=== PATIENT | female | born 1970 | race Caucasian/White ===

== ENCOUNTER → 2016-06-04 | Outpatient (CLI) | payer OTHER ==
[2015-12-30 10:02] VITALS: BP 122/72
[~2016-06-04] MED LIST: ACET325T9 PO; HYDR25CA PO; IBUP-1007 PO; IBUP-1060 PO; OMEP20CA5 PO
[2016-06-04 15:41] LABS: BILIRUBIN,URINE NEGATIVE (NEG); GLUCOSE,URINE NEGATIVE (NEG); NITRITE,URINE POSITIVE (NEG); PH,URINE 6.5; PROTEIN,URINE NEGATIVE (NEG-TRACE); UROBILINOGEN,URINE 0.2 mg/dL (0.2 mg/dL)
== END | disposition home or self-care (01) ==
LOC: LAB 15:14
PROVIDERS: ATTEND Family Medicine
DX: R30.9 Painful micturition, unspecified (principal)
CPT/HCPCS: 81003; 87086

== ENCOUNTER 2016-07-24 06:10 | Emergency (ER) | payer OTHER ==
[~2016-07-24] VITALS: Ht 162.6 cm; Wt 87.5 kg
[2016-07-24 06:46] LABS: BILIRUBIN,URINE NEGATIVE (NEG); GLUCOSE,URINE NEGATIVE (NEG); NITRITE,URINE NEGATIVE (NEG); PH,URINE 5.5; PROTEIN,URINE NEGATIVE (NEG-TRACE); UROBILINOGEN,URINE 0.2 mg/dL (0.2 mg/dL)
[2016-07-24 06:59] LABS: BACTERIA,URINE 0 /HPF (0-FEW); RBC,URINE 0 /HPF (0-2); SQUAMOUS EPITHELIAL CELL,UR FEW /LPF; WBC,URINE 0 /HPF (0-4)
[2016-07-24] MEDS ORDERED: DIAZEPAM 5 MG TABLET PO ONE (07:00)
[2016-07-24] MEDS ORDERED: NAPROXEN 500 MG TABLET PO ONE (07:00)
--- NOTE | 2016-07-24 07:23 | EKG ---
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
--- NOTE | 2016-07-24 07:36 | RAD ---
Right scapula, 2 views, 07/24/2016: History: Pain No fracture or destructive bony lesion is seen. IMPRESSION: No significant right scapular abnormality is detected. Chest, 2 views, 07/24/2016: History: Right-sided pain Comparison is made to a study from 09/21/2011. The heart size and pulmonary vascularity are normal. The right hemidiaphragm is minimally elevated. There is moderate linear atelectasis in the right base. There is minimal linear scarring or atelectasis in the left base. No pulmonary consolidation is seen. There is no evidence of pleural fluid or pneumothorax. The bony structures are unremarkable. IMPRESSION: Moderate right basilar linear atelectasis.
--- NOTE | 2016-07-24 07:40 | ED.ADGEN ---
Past Medical History Past Medical History: Migraines, UTI, Other Additional Past Medical Histor: DISTONIA, back pain Past Surgical History: Appendectomy, Cholecystectomy, , Other Additional Past Surgical Histo: L breast bipsy, ELBOW SX, uterine ablation Alcohol Use: Occasionally Drug Use: None Adult General Chief Complaint Chief Complaint: BACK PAIN OR INJURY HPI HPI Patient is a 46 year old woman, history of dystonia, migraine headache, who presents to the emergency department with a complaint of left scapular pain, and back pain that began last Friday has been constant since that time she states the pain is sharp and stabbing, denies any specific injury, has been taking Aleve and using topical medications at home without relief. Review of Systems Review of Systems Constitutional: Denies fever or chills. [] Eyes: Denies change in visual acuity. [] HENT: Denies nasal congestion or sore throat. [] Respiratory: Denies cough or shortness of breath. [] Cardiovascular: Denies chest pain or edema. [] GI: Denies abdominal pain, nausea, vomiting, bloody stools or diarrhea. [] : Denies dysuria. [] Musculoskeletal: Denies back pain or joint pain. [] Integument: Denies rash. [] Neurologic: Denies headache, focal weakness or sensory changes. [] Endocrine: Denies polyuria or polydipsia. [] Lymphatic: Denies swollen glands. [] Psychiatric: Denies depression or anxiety. [] Current Medications Current Medications Current Medications Medications (Trade) Dose Ordered Sig/Mirza Start Time Stop Time Status Last Admin Dose Admin Diazepam (Valium) 5 mg 1X ONCE 07/24/16 07:00 07/24/16 07:01 DC 07/24/16 06:56 5 MG Naproxen (Naprosyn) 500 mg 1X ONCE 07/24/16 07:00 07/24/16 07:01 DC 07/24/16 06:56 500 MG Allergies Allergies Allergies Coded Allergies Type Severity Reaction Last Updated Verified povidone-iodine Allergy Severe RASH, HIVES, BURNING 10/11/13 Yes codeine Adverse Reaction Severe DYSTONIA 10/11/13 Yes Physical Exam Physical Exam Constitutional: Well developed, well nourished, no acute distress, non-toxic appearance. [] HENT: Normocephalic, atraumatic, bilateral external ears normal, oropharynx moist, no oral exudates, nose normal. [] Eyes: PERRLA, EOMI, conjunctiva normal, no discharge. [] Neck: Normal range of motion, no tenderness, supple, no stridor. [] Cardiovascular:Heart rate regular rhythm, no murmur, S1, S2, rubs or gallops. [] Lungs & Thorax: Bilateral breath sounds clear to auscultation, no wheezing, rhonchi, rales. Patient with reproducible tenderness to palpation along the medial aspect of the right scapula, extending over the trapezius and into the neck, patient with tissue tension and muscle spasm noted in this region, no lesions, no sternal signs of trauma or other abnormalities identified. Abdomen: Bowel sounds normal, soft, no tenderness, no masses, no pulsatile masses. [] Skin: Warm, dry, no erythema, no rash. [] Back: No tenderness, no CVA tenderness. [] Extremities: No tenderness, no cyanosis, no clubbing, ROM intact, no edema. [] Neurologic: Alert and oriented X 3, normal motor function, normal sensory function, no focal deficits noted. [] Psychologic: Affect normal, judgement normal, mood normal. [] Current Patient Data Vital Signs Vital Signs Date Time Temp Pulse Resp B/P Pulse Ox O2 Delivery O2 Flow Rate FiO2 07/24/16 08:26 86 16 96/58 94 Room Air 07/24/16 06:48 97.9 97.9 Lab Values Laboratory Tests Test 07/24/16 06:25 07/24/16 06:38 Urine Collection Type Unknown Urine Color Yellow Urine Clarity Clear Urine pH 5.5 Urine Specific [place] 1.010 Urine Protein Negativemg/dL (NEG-TRACE) Urine Glucose (UA) Negativemg/dL (NEG) Urine Ketones (Stick) Negativemg/dL (NEG) Urine Blood Negative (NEG) Urine Nitrite Negative (NEG) Urine Bilirubin Negative (NEG) Urine Urobilinogen Dipstick 0.2mg/dL (0.2 mg/dL) Urine Leukocyte Esterase Negative (NEG) Urine RBC 0/HPF (0-2) Urine WBC 0/HPF (0-4) Urine Squamous Epithelial Cells Few/LPF Urine Bacteria 0/HPF (0-FEW) Urine Mucus Marked/LPF POC Urine HCG, Qualitative Hcg negative (Negative) EKG EKG EC: Sinus rhythm, heart rate 97 beats minute, upright axis, QTC of 423, SC 126, QRS of 82, no ST elevations or depressions, no evidence of acute ST abnormalities. As interpreted by me. [] Radiology/Procedures Radiology/Procedures [] [id number] [place] [address] IMAGING REPORT Signed PATIENT: ZANDER AGUILAR ACCOUNT: [id number] : 1970 LOCATION: ER AGE: 46 SEX: F EXAM [id number] STATUS: REG ER ORD. PHYSICIAN: DANYEL MCKEON DO REASON: pain/ R side PROCEDURE: CHEST PA & LATERAL; SCAPULA RIGHT Right scapula, 2 views, 07/24/2016: History: Pain No fracture or destructive bony lesion is seen. IMPRESSION: No significant right scapular abnormality is detected. Chest, 2 views, 07/24/2016: History: Right-sided pain Comparison is made to a study from 09/21/2011. The heart size and pulmonary vascularity are normal. The right hemidiaphragm is minimally elevated. There is moderate linear atelectasis in the right base. There is minimal linear scarring or atelectasis in the left base. No pulmonary consolidation is seen. There is no evidence of pleural fluid or pneumothorax. The bony structures are unremarkable. IMPRESSION: Moderate right basilar linear atelectasis. DICTATED and SIGNED BY: SANIYA ROSAS MD DATE: 07/24/16 0731 CC: DANYEL MCKEON DO; MYRIAM GONZALEZ MD ~ Impressions: [id number] [place] [address] IMAGING REPORT Signed PATIENT: ZANDER AGUILAR ACCOUNT: [id number] : 1970 LOCATION: ER AGE: 46 SEX: F EXAM [id number] STATUS: REG ER ORD. PHYSICIAN: DANYEL MCKEON DO REASON: pain/ R side PROCEDURE: CHEST PA & LATERAL; SCAPULA RIGHT Right scapula, 2 views, 07/24/2016: History: Pain No fracture or destructive bony lesion is seen. IMPRESSION: No significant right scapular abnormality is detected. Chest, 2 views, 07/24/2016: History: Right-sided pain Comparison is made to a study from 09/21/2011. The heart size and pulmonary vascularity are normal. The right hemidiaphragm is minimally elevated. There is moderate linear atelectasis in the right base. There is minimal linear scarring or atelectasis in the left base. No pulmonary consolidation is seen. There is no evidence of pleural fluid or pneumothorax. The bony structures are unremarkable. IMPRESSION: Moderate right basilar linear atelectasis. DICTATED and SIGNED BY: SANIYA ROSAS MD DATE: 07/24/16 0731 CC: DANYEL MCKEON DO; MYRIAM GONZALEZ MD ~ Course & Med Decision Making Course & Med Decision Making Pertinent Labs and Imaging studies reviewed. (See chart for details) Patient well-appearing reproducible pain, tissue tension noted, consistent with there is a spasm, I do believe is consistent with musculoskeletal source, not pulmonary or cardiac, ECG and chest x-ray were normal along with scapular x-ray for bony abnormalities. Pain has been present continuously for the past 4 days, with no reported injuries. Patient noted to have mild atelectasis in the right side. I did discuss this with her, she has used incentives barometer previously , is agreeable to using his incentive spirometry again at this time. Patient received naproxen and Valium in the ED with improvement of her symptoms. Did discuss concerning symptoms to prompt return to the emergency department, and follow-up with her primary care provider. Patient states she is ready for discharge at this time, discharged with prescription for Valium, naproxen, given incentive spirometer with instructions, to follow-up with her PCP, and return to the ED for concerning symptoms as discussed. Dragon Disclaimer Dragon Disclaimer This electronic medical record was generated, in whole or in part, using a voice recognition dictation system. Departure Impression: Primary Impression: Back pain Additional Impression: Myofascial pain on right side Disposition: 01 HOME, SELF-CARE Condition: IMPROVED Scripts Diazepam (Valium)5 Mg Tablet5 Mg PO TID PRN PAIN #12 TAB Prov:DANYEL MCKEON DO 07/24/16 Naproxen 250 Mg [id number] Mg PO BID PRN PAIN #10 Prov:DANYEL MCKEON DO 07/24/16 Problem Qualifiers Primary Impression: Back pain Back pain location: thoracic back pain Chronicity: acute Back pain laterality: right Qualified Code: M54.6 - Pain in thoracic spine DANYEL MCKEON DO Jul 24, 2016 07:40
[2016-07-24] MEDS ORDERED: NAPR250T2 PO (08:21)
[2016-07-24] MEDS ORDERED: DIAZ5TAB PO (08:21)
[2016-07-24 08:26] VITALS: BP 96/58
== END 2016-07-24 08:34 | disposition home or self-care (01) ==
LOC: ER 06:10
DX: M54.9 Dorsalgia, unspecified (principal); M79.1 Myalgia; J98.11 Atelectasis; G43.909 Migraine, unspecified, not intractable, without status migrainosus; Z87.440 Personal history of urinary (tract) infections; Z90.49 Acquired absence of other specified parts of digestive tract; Z98.890 Other specified postprocedural states; Z88.5 Allergy status to narcotic agent; Z91.041 Radiographic dye allergy status
CPT/HCPCS: 71020; 73010; 81001; 81025; 93005; 99285-25

== ENCOUNTER → 2016-07-29 | Outpatient (CLI) | payer OTHER ==
[2016-07-24 08:26] VITALS: BP 96/58
[~2016-07-29] MED LIST changes: +DIAZ5TAB PO; +NAPR250T2 PO
--- NOTE | 2016-07-29 16:30 | KCIC ---
PROCEDURE Five view cervical and three-view thoracic spine HISTORY Upper back pain for 1.5 weeks. No known injury or trauma. COMPARISON None FINDINGS Cervical C1 through C6 are visualized on the lateral view. No evidence of acute fracture or bone destruction. Disc spaces and alignment are intact. Prevertebral soft tissues within normal limits. The neural foramina demonstrate no osseous encroachment. Thoracic spine No evidence of acute fracture or aggressive bone destruction. No paraspinal soft tissue swelling. Incidentally noted linear density in the right lung base may represent atelectasis. IMPRESSION No evidence of acute fracture or subluxation in the cervical or thoracic spine. Partially seen linear opacity in the right lung base, may represent atelectasis. Electronically signed by: Steven Hooker MD (Jul 29, 2016 16:28:32)
== END | disposition home or self-care (01) ==
LOC: KCIC 15:51
PROVIDERS: ATTEND Family Medicine
DX: M54.2 Cervicalgia (principal); R91.8 Other nonspecific abnormal finding of lung field
CPT/HCPCS: 72050; 72072

== ENCOUNTER → 2016-09-23 | Outpatient (CLI) | payer OTHER | END | disposition home or self-care (01) | LOC: LAB 14:09 | PROVIDERS: ATTEND Psychiatry & Neurology Neuromuscular Medicine | DX: G71.11 Myotonic muscular dystrophy (principal) | CPT/HCPCS: 36415 ==

== ENCOUNTER → 2016-09-23 | Outpatient (CLI) | payer OTHER ==
[2016-09-23 14:34] LABS: BASO % 1 % (0-3); EOS % 2 % (0-3); HEMATOCRIT 51.5 % (36.0-47.0); LYMPH # 1.6 x10^3/uL (1.0-4.8); LYMPH % 28 % (24-48); MEAN CORPUSCULAR HEMOGLOBIN 33 pg (25-35); MEAN CORPUSCULAR HGB CONC 33 g/dL (31-37); MEAN CORPUSCULAR VOLUME 99 fL (79-100); MONO % 10 % (0-9); NEUT % 60 % (31-73); PLATELET COUNT 199 x10^3/uL (140-400); RED BLOOD COUNT 5.19 x10^6/uL (3.50-5.40); WHITE BLOOD COUNT 5.6 x10^3/uL (4.0-11.0)
[2016-09-23 14:59] LABS: ALBUMIN 3.4 g/dL (3.4-5.0); ALBUMIN/GLOBULIN RATIO 0.9 (1.0-1.7); CALCIUM 9.3 mg/dL (8.5-10.1); CREATININE 0.9 mg/dL (0.6-1.0); GFR 67.4; POTASSIUM 3.7 mmol/L (3.5-5.1); TOTAL BILIRUBIN 0.5 mg/dL (0.2-1.0); TOTAL PROTEIN 7.3 g/dL (6.4-8.2)
[2016-09-23 15:05] LABS: CHOLESTEROL/HDL RATIO 2.9
[2016-09-23 15:54] LABS: FOLATE 8.82 ng/ml (3.2-20.0)
== END | disposition home or self-care (01) ==
LOC: LAB 14:01
PROVIDERS: ATTEND Family Medicine
DX: Z13.220 Encounter for screening for lipoid disorders (principal); M62.89 Other specified disorders of muscle
CPT/HCPCS: 36415; 80053; 80061; 82607; 82746; 84443; 85027

== ENCOUNTER → 2016-10-14 | Outpatient (CLI) | payer OTHER ==
--- NOTE | 2016-10-15 12:33 | SLEEP ---
DATE OF STUDY: 10/14/2016 ATTENDING PHYSICIAN: Dr. Steven Mejia. The patient is a 46-year-old, who weighs 187 pounds with a BMI of 32. P[place] score was 10. Sleep study was performed at [facility]. This was a split night study. During the night study, the patient spent 454 minutes in bed and slept for 281 minutes with a low sleep efficiency of 62%. Sleep latency was 25 minutes with a REM latency of 156 minutes. Overall, sleep architecture showed increased stage I sleep, reduced stage II sleep, increased slow wave and normal REM sleep. During the initial diagnostic portion of the study, the patient slept for 149 minutes. During this time, there were 22 obstructive apneas, 23 hypopneas, 8 mixed apneas and no central apneas. The patient's apnea-hypopnea index was 21 per hour. Supine index 21 per hour and a REM index of 108 per hour. EKG monitoring revealed normal sinus rhythm, average heart rate was 70 beats per minute. No arrhythmias were observed. Review of nocturnal oximetry reveals that 51% of the time oxygen saturation remained between 80% and 89%. PLMS were not seen. The patient met the criteria for CPAP initiation. It was started at 5 cm of water and titrated up to 9 cm of water. At the final pressure, the patient slept for 53 minutes. The patient had supine as well as long REM period was observed. AHI was 0 per hour and oxygen saturation remained above 92%. The patient used a medium size full face mask. IMPRESSION: 1. Moderate sleep apnea-hypopnea syndrome with worsening during REM sleep. Total AHI 21 per hour with a REM AHI 108 per hour. 2. No clinically significant PLMS. 3. Nocturnal hypoxia secondary to obstructive sleep apnea, but resolved with CPAP RECOMMENDATIONS: 1. CPAP at 9 cm water completely eliminated the patient's sleep apnea and should be used on a nightly basis. 2. Follow up in 4-6 weeks to assess compliance with CPAP and to document clinical improvement. 3. Weight loss is advised. 4. Avoid [employer] depressants. 5. Caution regarding driving until symptoms of sleep apnea resolved with the use of CPAP. CALVIN MONTANEZ MD DR: DEXTER/feliz JOB#: [id number] / [id number] STEVEN Starks MDD
== END | disposition home or self-care (01) ==
LOC: SLPLAB 18:35
PROVIDERS: ATTEND Family Medicine
DX: G47.33 Obstructive sleep apnea (adult) (pediatric) (principal); R53.83 Other fatigue; Q79.6 Ehlers-Danlos syndromes; R06.83 Snoring
CPT/HCPCS: 95810

== ENCOUNTER 2016-12-26 05:31 | Emergency (ER) | payer OTHER ==
[~2016-12-26] VITALS: Ht 162.6 cm; Wt 83.9 kg
[2016-12-26 05:35] VITALS: BP 120/80
[2016-12-26] MEDS ORDERED: HYDROcodone/APAP 5/325MG 1 TAB TABLET PO ONE (06:45)
[2016-12-26] MEDS ORDERED: ORPHENADRINE CITRATE 60 MG/2 ML VIAL. IM ONE (06:45)
[2016-12-26] MEDS ORDERED: NAPROXEN 500 MG TABLET PO ONE (06:45)
[2016-12-26] MEDS ORDERED: HYDR-971 PO (06:49)
[2016-12-26] MEDS ORDERED: CYCL10TA2 PO (06:49)
[2016-12-26] MEDS ORDERED: NAPR500T PO (06:49)
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
== END 2016-12-26 07:03 | disposition home or self-care (01) ==
LOC: ER 05:31
DX: M54.9 Dorsalgia, unspecified (principal); G43.909 Migraine, unspecified, not intractable, without status migrainosus; Z88.8 Allergy status to other drugs, medicaments and biological substances; Z88.6 Allergy status to analgesic agent; Z87.440 Personal history of urinary (tract) infections; Z90.49 Acquired absence of other specified parts of digestive tract; W17.89XA Other fall from one level to another, initial encounter; Y93.89 Activity, other specified; Y92.89 Other specified places as the place of occurrence of the external cause; Y99.8 Other external cause status
CPT/HCPCS: 96372; 99283; J2360

== ENCOUNTER 2017-01-06 12:02 | Inpatient (IN) | payer OTHER ==
[~2017-01-06] VITALS: Ht 162.6 cm; Wt 83.0 kg
[~2017-01-06 12:02] MED LIST changes: +CYCL10TA2 PO; +HYDR-971 PO; +NAPR500T PO
--- NOTE | 2017-01-06 12:38 | EKG ---
[facility] [address] [place] [address] Test Date: 2017-01-06 Test Time: 12:10:16 Pat Name: ZANDER AGUILAR Department: Room: Gender: F Paraffiner: : 1970 Requested By: DRE CHÁVEZ Order Number: [id number] Reading MD: Measurements Intervals [place] Rate: 104 P: 38 DE: 136 QRS: 42 QRSD: 84 T: 0 QT: 374 QTc: 499 Interpretive Statements SINUS TACHYCARDIA LOW LIMB LEAD VOLTAGE QRS(T) CONTOUR ABNORMALITY CONSIDER INFERIOR MYOCARDIAL DAMAGE RI6.01 Unconfirmed report No previous ECG available for comparison
[2017-01-06] MEDS ORDERED: ASPIRIN CHEWABLE 81 MG TABLET. PO ONE (13:00)
[2017-01-06] MEDS ORDERED: KETOROLAC TROMETHAMINE 30 MG/ML INJ. IV ONE (13:00)
[2017-01-06 13:09] LABS: BASO # 0.1 x10^3/uL (0.0-0.2); BASO % 1 % (0-3); EOS % 1 % (0-3); HEMATOCRIT 48.8 % (36.0-47.0); HEMOGLOBIN 16.9 g/dL (12.0-15.5); LYMPH # 1.6 x10^3/uL (1.0-4.8); LYMPH % 23 % (24-48); MEAN CORPUSCULAR HEMOGLOBIN 34 pg (25-35); MEAN CORPUSCULAR HGB CONC 35 g/dL (31-37); MEAN CORPUSCULAR VOLUME 97 fL (79-100); MONO % 10 % (0-9); NEUT % 66 % (31-73); PLATELET COUNT 209 x10^3/uL (140-400); RED BLOOD COUNT 5.05 x10^6/uL (3.50-5.40); RED CELL DISTRIBUTION WIDTH 13.8 % (11.5-14.5); WHITE BLOOD COUNT 7.2 x10^3/uL (4.0-11.0)
[2017-01-06 13:15] LABS: CALCIUM 10.5 mg/dL (8.5-10.1); CREATININE 0.8 mg/dL (0.6-1.0); GFR 77.2; POTASSIUM 4.7 mmol/L (3.5-5.1)
[2017-01-06 13:22] LABS: ALBUMIN 3.7 g/dL (3.4-5.0); DIRECT BILIRUBIN 0.1 mg/dL (0.0-0.2); MAGNESIUM 1.8 mg/dL (1.8-2.4); TOTAL BILIRUBIN 0.4 mg/dL (0.2-1.0); TOTAL PROTEIN 6.8 g/dL (6.4-8.2)
--- NOTE | 2017-01-06 13:27 | PHYS DOC ---
Past Medical History Past Medical History: Depression, Migraines, UTI, Other Additional Past Medical Histor: DISTONIA, back pain, miotonic distrophy type 1 Past Surgical History: Appendectomy, Cholecystectomy, , Other Additional Past Surgical Histo: L breast bipsy, ELBOW SX, uterine ablation Additional Information: 5-6 cigarettes daily Alcohol Use: Occasionally Drug Use: None Adult General Chief Complaint Chief Complaint: CHEST PAIN HPI HPI Patient is a 46 year old female on her and who is a patient of Dr. Godinez who presents to the ED with the complaint of right shoulder pain and mid chest pain all day today. Patient states about 3 weeks ago she pulled her back and has been dealing with some back pain since then. This morning, she woke up with pain in her right shoulder going down into the middle of her chest. The shoulder pain doesn't really go away, it waxes and wanes, middle chest pain does come and go. She's never had pain like this before. She has no history of [place]. 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 She has an EKG every 6 months to keep an eye on the cardiac impact of that. Patient denies nausea, she has had somewhat shortness of air, she has been a bit dizzy. 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 Patient denies history of [place]. She does smoke 5 or 6 cigarettes a day. She denies hypertension, denies elevated cholesterol, denies diabetes. She has a positive family history with her father having an [place] and her grandfather as well. Review of Systems Review of Systems Constitutional: Denies fever or chills [] Eyes: Denies change in visual acuity, redness, or eye pain [] HENT: Denies nasal congestion or sore throat [] Respiratory: Denies cough, has had some shortness of air with the chest pain and also it hurts to take a deep breath Cardiovascular: As in history of present illness GI: Denies abdominal pain, nausea, vomiting, bloody stools or diarrhea [] : Denies dysuria or hematuria [] Musculoskeletal: As in history of present illness, she has had some back pain for about 3 weeks and took her last dose of Lortab yesterday. Also has a history of "myotonic dystrophy type I". Integument: Denies rash or skin lesions [] Neurologic: Denies headache, focal weakness or sensory changes [] Current Medications Current Medications Current Medications Medications (Trade) Dose Ordered Sig/Mirza Start Time Stop Time Status Last Admin Dose Admin Aspirin (Children'S Aspirin) 324 mg 1X ONCE 01/06/17 13:00 01/06/17 13:01 DC 01/06/17 13:03 324 MG Ketorolac Tromethamine (Toradol) 30 mg 1X ONCE 01/06/17 13:00 01/06/17 13:01 DC 01/06/17 13:04 30 MG Allergies Allergies Allergies Coded Allergies Type Severity Reaction Last Updated Verified povidone-iodine Allergy Severe RASH, HIVES, BURNING 10/11/13 Yes Physical Exam Physical Exam Constitutional: Well developed, well nourished, no acute distress, non-toxic appearance. [] HENT: Normocephalic, atraumatic, bilateral external ears normal, oropharynx moist, no oral exudates, nose normal. [] Eyes: PERRLA, EOMI, conjunctiva normal, no discharge. [] Neck: Normal range of motion, no tenderness, supple, no stridor. [] Cardiovascular:Heart rate regular rhythm, no murmur [] Lungs & Thorax: Bilateral breath sounds clear to auscultation [] Abdomen: Bowel sounds normal, soft, no tenderness, no masses, no pulsatile masses. [] Skin: Warm, dry, no erythema, no rash. [] Back: No tenderness, no CVA tenderness. [] Extremities: No tenderness, no cyanosis, no clubbing, ROM intact, no edema. [] Neurologic: Alert and oriented X 3, normal motor function, normal sensory function, no focal deficits noted. [] Psychologic: Affect normal, judgement normal, mood normal. [] Current Patient Data Vital Signs Vital Signs Date Time Temp Pulse Resp B/P (MAP) Pulse Ox O2 Delivery O2 Flow Rate FiO2 01/06/17 12:08 98.7 99 18 121/78 (92) 95 Room Air 98.7 Lab Values Laboratory Tests Test 01/06/17 12:53 White Blood Count 7.2 x10^3/uL (4.0-11.0) Red Blood Count 5.05 x10^6/uL (3.50-5.40) Hemoglobin 16.9 g/dL (12.0-15.5) H Hematocrit 48.8 % (36.0-47.0) H Mean Corpuscular Volume 97 fL (79-100) Mean Corpuscular Hemoglobin 34 pg (25-35) Mean Corpuscular Hemoglobin Concent 35 g/dL (31-37) Red Cell Distribution Width 13.8 % (11.5-14.5) Platelet Count 209 x10^3/uL (140-400) Neutrophils (%) (Auto) 66 % (31-73) Lymphocytes (%) (Auto) 23 % (24-48) L Monocytes (%) (Auto) 10 % (0-9) H Eosinophils (%) (Auto) 1 % (0-3) Basophils (%) (Auto) 1 % (0-3) Neutrophils # (Auto) 4.8 x10^3uL (1.8-7.7) Lymphocytes # (Auto) 1.6 x10^3/uL (1.0-4.8) Monocytes # (Auto) 0.7 x10^3/uL (0.0-1.1) Eosinophils # (Auto) 0.1 x10^3/uL (0.0-0.7) Basophils # (Auto) 0.1 x10^3/uL (0.0-0.2) D-Dimer (Letty) < 0.27 ug/mlFEU Sodium Level 145 mmol/L (136-145) Potassium Level 4.7 mmol/L (3.5-5.1) Chloride Level 108 mmol/L (98-107) H Carbon Dioxide Level 31 mmol/L (21-32) Anion Gap 6 (6-14) Blood Urea Nitrogen 10 mg/dL (7-20) Creatinine 0.8 mg/dL (0.6-1.0) Estimated GFR (Cockcroft-Gault) 77.2 Glucose Level 98 mg/dL (70-99) Calcium Level 10.5 mg/dL (8.5-10.1) H Magnesium Level 1.8 mg/dL (1.8-2.4) Total Bilirubin 0.4 mg/dL (0.2-1.0) Direct Bilirubin 0.1 mg/dL (0.0-0.2) Aspartate Amino Transferase (AST) 29 U/L (15-37) Alanine Aminotransferase (ALT) 43 U/L (14-59) Alkaline Phosphatase 81 U/L (46-116) Creatine Kinase 96 U/L (26-192) Creatine Kinase MB (Mass) 1.6 ng/mL (0.0-3.6) Creatine Kinase MB Relative Index 1.7 % (0-4) Troponin I Quantitative < 0.017 ng/mL (0.000-0.055) QX-Ixb-N-Type Natriuretic Peptide 70 pg/mL (0-124) Total Protein 6.8 g/dL (6.4-8.2) Albumin 3.7 g/dL (3.4-5.0) Lipase 125 U/L (73-393) Laboratory Tests 01/06/17 12:53 Laboratory Tests 01/06/17 12:53 EKG EKG Total bleed EKG read by me. Sinus rhythm. Heart rate 104. There are no acute ST or T wave changes indicative of ischemia or infarction. There is some T-wave flattening and inversion in V3 through V5 which the patient states she has had in the past. No STEMI. 1214 [] Radiology/Procedures Radiology/Procedures One view portable chest x-ray read by the radiologist. No acute findings. [] Course & Med Decision Making Course & Med Decision Making Pertinent Labs and Imaging studies reviewed. (See chart for details) 46 showed female with multiple cardiac risk factors presents with mid chest discomfort today also right shoulder pain. EKG, chest x-ray, labs in the emergency department not remarkable for source of the pain or acute findings. I believe the patient needs to be ruled out. I discussed the patient with Dr. Godinez, her physician, who came to the ED to see her. He will admit her to the hospital. I wrote bridge orders. The patient is agreeable to that plan. [] Dragon Disclaimer Dragon Disclaimer This electronic medical record was generated, in whole or in part, using a voice recognition dictation system. Departure Departure Impression: Primary Impression: Chest pain Disposition: ADMITTED INPATIENT Admitting Physician: Elliot Godinez Condition: STABLE Referrals: MYRIAM GONZALEZ MD (PCP) DRE CHÁVEZ MD Jan 06, 2017 13:27
[2017-01-06 13:30] LABS: CKMB MASS 1.6 ng/mL (0.0-3.6)
[2017-01-06] MEDS ORDERED: MORPHINE SULFATE 2 MG/ML DISP.SYRIN. IV/SQ PRN (14:00)
--- NOTE | 2017-01-06 14:02 | RAD ---
Indication pain in the mid chest. PA and lateral views of the chest were obtained. Comparison is made to an examination 07/24/2016. There is some linear atelectasis or scar in the right lung similar to the previous exam. The heart and pulmonary vessels appear normal. The lungs are clear of acute infiltrates. There is no pleural fluid or pneumothorax. The visualized bony structures appear grossly intact. IMPRESSION: No acute finding. Linear atelectasis or scar in the right lung
--- NOTE | 2017-01-06 15:15 | ACF ---
Admit Criteria Forms Admit Criteria Forms Admit Criteria Forms CARDIOLOGY GRG Clinical Indications for Admission to Inpatient Care ( Place 'X' for any and all applicable criteria): Hospital admission is needed for appropriate care of the patient because of ANY ONE of the following (1): [ ] I. Hemodynamic instability as indicated by ALL of the following (1)(2)(3) (4)(5) [ ]a) Vital signs or other findings not as expected for chronic patient condition or baseline [ ]b) Instability indicated by ANY ONE of the following: [ ]i) Hypotension [ ]ii) Symptomatic Tachycardia unresponsive to treatment ( e.g., analgesia, fluids, sedation as indicated) [ ]iii) Inadequate perfusion indicated by ANY ONE of the following: [ ] 1) Lactic acidosis (> 2 mmol/L) [ ] 2) New abnormal capillary refill (> 3 seconds) [ ] 3) Reduced urine output [ ] 4) New altered mental status [ ]iv) Orthostatic vital sign changes unresponsive to treatment (e.g., fluids) [ ]v) IV inotropic or vasopressor medication required to maintain adequate blood pressure or perfusion [ ] II. Severe heart failure as indicated by ANY ONE of the following(17)(18) [ ]a) Respiratory distress [ ]b) Hypotension [ ]c) Anasarca (refractory to outpatient therapy) [ ]d) Cardiac arrhythmias of immediate concern [ ]e) Myocardial ischemia [ ] III. Cardiac arrhythmias or findings of immediate concern indicated by ANY ONE of the following (19)(20): [ ] a) Heart rhythms that are inherently dangerous or unstable indicated by ANY ONE of the following (21)(22)(23): [ ] i) Resuscitated ventricular fibrillation or cardiac arrest [ ] ii) Ventricular escape rhythm [ ] iii) Sustained ventricular tachycardia (30 seconds or more of ventricular rhythm at greater than 100 beats per minute) [ ] iv) Nonsustained ventricular tachycardia and ANY ONE of the following: [ ] 1) Suspected cardiac ischemia as cause or consequence of ventricular tachycardia [ ] 2) In setting of acute myocarditis [ ] b) Unstable cardiac conduction defects indicated by ANY ONE of the following(23)(24)(25) [ ] i) Type II second-degree atrioventricular block [ ]ii) Third-degree atrioventricular block [ ]iii) New-onset left bundle branch block with suspected myocardial ischemia [ ]c) Any heart rhythm and ANY ONE of the following (21)(22)(26)(27) (28) [ ] i) Continuous long-term ECG monitoring needed (e.g., initiation of drug requiring monitoring for more than 24 hours) [ ] ii) Patient has automatic implanted cardioverter defibrillator that is repeatedly firing, malfunctioning, or in need of immediate adjustment of settings beyond the scope of ambulatory or observation care [ ]d) Heart rhythms of concern due to ANY ONE of the following: [ ] i) Hypotension [ ] ii) Respiratory distress [ ] iii) Association with other significant symptoms (e.g., bradycardia with syncope or ongoing dizziness, supraventricular tachycardia with chest pain (14)(15)(17) [ ] IV. Monitoring for cardiac contusion beyond the scope of observation care needed [A](30)(31)(32) [ ] V. Surgical or device complication (e.g., valve replacement complication , pacemaker dysfunction) (35)(41)(44)(45)(46) [ ] . Inpatient palliative care needed. [B](49) Also use Inpatient Palliative Care Criteria [ ] VII. Nonbacterial thrombotic (marantic) endocarditis (36)(43)(47)(48) [X ] VIII. Cardiology condition, symptom, or finding for which emergency and observation care has failed or are not considered appropriate. [ ] IX. Acute valvular disease requiring inpatient as indicated by ANY ONE of the following (41) [ ]a) Acute valvular regurgitation (42) [ ]b) Noninfectious valvulitis (43) [ ]c) Obstructive valve thrombosis [ ]d) Paravalvular leak [ ]e) Other significant valvular disorder remaining after emergency or observation level of care (as appropriate) [ ]X. Pericardial disease requiring inpatient treatment as indicated by ANY ONE of the following (33)(34)(35)(36)(37) [ ]a) Suspected tamponade (38)(39)(40) [ ]b) Hemopericardium [ ]c) Other significant pericardial disorder remaining after emergency or observation level of care (as appropriate) [ ] XI. Cardiac ischemia beyond scope of emergency and observation care. [ ] XII. Hypertension requiring inpatient treatment as indicated by ANY ONE of the following (6)(7)(8) [ ]a) SBP greater than 220 mm Hg or DBP greater than 120 mmHg despite treatment [ ]b) SBP greater than 140 mm Hg or DBP greater than 100 mm Hg with evidence of acute end organ damage as indicated by ANY ONE of the following [ ] i) Encephalopathy [ ] ii) Acute renal failure as indicated by new onset of ANY ONE of the following (9)(10)(11)(12)(13) [ ]1) 3-fold rise in serum creatinine from baseline [ ]2) Serum creatinine greater than 4 mg/dL ( 354 micromoles/L) with acute rise greater than 0.5 mg/dL (44.2 micromoles/L) [ ]3) Reduction of more than 75% in estimated glomerular filtration rate from baseline [ ]4) Estimated glomerular filtration rate less than 35 mL/min/1.73m2 (0.59 mL/sec/1.73m2) in child up to 18 years of age [ ]5) Cessation of urine output indicated by ALL of the following [ ]A. Adequate volume status [ ]B. Inadequate urine output as indicated by ANY ONE of the following [ ]a. Urine output less than 0.3 mL/kg/hr for 24 hours [ ]b. Anuria (urine output less than 0.1 mL/kg/hr) for 12 hours [ ] iii) Aortic dissection [ ] iv) Myocardial Ischemia [ ] v) Left ventricular heart failure [ ]vi) Retinal Hemorrhage [ ]vii) Other significant finding [ ]c) Hypertension in child requiring inpatient treatment as indicated by ALL of the following(14)(15)(16) [ ] i) Outpatient treatment not effective, not available, or not appropriate [ ]ii) SBP or DBP greater than 95th percentile for age [ ]iii) Evidence of acute end organ damage as indicated by ANY ONE of the following [ ]1) Altered mental status [ ]2) Acute renal failure as indicated by new onset of ANY ONE of the following(9)(10)(11)(12)(13) [ ]A. 3-fold rise in serum creatinine from baseline [ ]B. Serum creatinine greater than 4 mg/dL (354 micromoles/L) with acute rise greater than 0.5 mg/dL (44.2 micromoles/L) [ ]C. Reduction of more than 75% in estimated glomerular filtration rate from baseline [ ]D. Estimated glomerular filtration rate less than 35 mL/min/1.73m2 (0.59 mL/sec/1.73m2) in child up to 18 years of age [ ]E. Cessation of urine output indicated by ALL of the following [ ]a. Adequate volume status [ ]b. Inadequate urine output as indicated by ANY ONE of the following [ ]i) Urine output less than 0.3 mL/kg/hr for 24 hours [ ]ii) Anuria ( urine output less than 0.1 mL/kg/hr) for 12 hours [ ]3) Severe headache [ ]4) Visual disturbance [ ]5) Retinal hemorrhage [ ]6) Other significant finding [ ]XIII. Complications of transplanted heart indicated by ANY ONE of the following(61): [ ]a) Acute graft rejection requiring inpatient management (eg, intravenous immunosuppression)(62)(63) [ ]b) Acute graft heart failure indicated by ANY ONE of the following(64): [ ]i) Hemodynamic instability [ ]ii) Cardiac arrhythmias of immediate concern [ ]iii) Pulmonary edema that is very severe (eg, mechanical ventilation needed, imminent or likely, need for 100% oxygen to keep oxygen saturation above 90%) [ ]iv) Pulmonary edema that is persistent as indicated by ALL of the following: [ ]1) New need for oxygen therapy to keep oxygen saturation above 90% (or increased FiO2 need from baseline) [ ]2) Has not improved sufficiently with emergency department or observation care IV diuretics or other heart failure treatments[E] [ ]v) Altered mental status that is severe or persistent [ ]vi) Increased creatinine (new on laboratory test) with reduction of more than 50% in estimated glomerular filtration rate from baseline [ ]vii) Progressively (ongoing) rising creatinine (known from past laboratory test) with reduction of more than 25% in estimated glomerular filtration rate from baseline [ ]viii) Acute renal failure [ ]ix) Acute peripheral ischemia (eg, examination shows pulseless, cool, mottled, or cyanotic extremity) [ ]x) Pulmonary artery catheter monitoring needed [ ]xi) Other sign or symptom of heart failure requiring inpatient treatment (ie, too severe or not responsive to outpatient and observation care treatment) [ ]c) Infection requiring inpatient management (eg, Hemodynamic instability, need for intravenous antimicrobial treatment)(66)(67)(68)(69)(70) [ ]d) Cardiac allograft vasculopathy requiring inpatient management ( eg evidence of cardiac ischemia)(71) [ ]e) Other complication of transplanted heart (eg, stroke, severe pulmonary hypertension, severe valvular dysfunction) requiring inpatient management(72) The original [facility] content created by [facility] [employer] has been revised. The portions of the content which have been revised are identified through the use of italic text or in bold, and [facility] has neither reviewed nor approved the modified material. All other unmodified content is copyright [facility]. Please see references footnoted in the original [facility] edition 2016 ANOOP VIRGEN Jan 06, 2017 15:15
[2017-01-06 15:22] VITALS: BP 114/58
[2017-01-06 15:24] VITALS: BP 114/58
[2017-01-06] MEDS: HYDROcodone/APAP 5/325MG 1 TAB TABLET PO PRN (17:31)
[2017-01-06] MEDS ORDERED: ZOLPIDEM 5 MG TABLET. PO PRN (18:30)
[2017-01-06] MEDS ORDERED: fentaNYL PF VIAL 100 MCG/2 ML VIAL IV PRN (19:30)
--- NOTE | 2017-01-06 19:35 | PDOC1 ---
History and Physical Date of Admission Date of Admission DATE: 01/06/17 TIME: 19:20 Identification/Chief Complaint Chief Complaint Chest Pain Problems: History of Present Illness History of Present Illness This pt is a pleasant 46 y o Lady that has a Hx of HTN and a very strong family Hx of CAD. She developed a sternal chest pain with associated dyspnea and some diaphoresis. She has also been under a lot of stress with family problems. At the time that I saw her in the ER she was feeling better and the EKG did not show any acute changes, the enzymes were negative. Past Medical History Cardiovascular: HTN Family History Family History: Coronary Artery Disease Current Problem List Problem List Problems Medical Problems: (1) Chest pain Status: Acute Problems: Current Medications Current Medications Current Medications Aspirin (Children'S Aspirin) 324 mg 1X ONCE PO Last administered on 01/06/17 13:03; Start 01/06/17 at 13:00; Stop 01/06/17 at 13:01; Status DC Ketorolac Tromethamine (Toradol) 30 mg 1X ONCE IV Last administered on 13:04; Start 01/06/17 at 13:00; Stop 01/06/17 at 13:01; Status DC Morphine Sulfate 2 mg PRN Q15MIN PRN IV/SQ PAIN GREATER THAN 3/10 Last administered on 01/06/17 14:19; Start 01/06/17 at 14:00; Stop 01/06/17 at 23:59 Acetaminophen/ Hydrocodone Bitart (Lortab 5/325) 1 tab PRN Q6HRS PRN PO PAIN Last administered on 01/06/17 17:31; Start 01/06/17 at 17:15 Cyclobenzaprine HCl (Flexeril) 10 mg TID PRN PO MUSCLE PAIN; Start 01/06/17 at 18:30 Zolpidem Tartrate (Ambien) 5 mg PRN QHS PRN PO INSOMNIA; Start 01/06/17 at 18:30 Active Scripts Active Naprosyn (Naproxen) 500 Mg Tablet 1 Tab PO BID Cyclobenzaprine Hcl 10 Mg Tablet 1 Tab PO TID PRN Dellroy 5-325 Tablet (Acetaminophen/Hydrocodone Bitart) 1 Each Tablet 1 Tab PO Q4- 6HRS PRN Valium (Diazepam) 5 Mg Tablet 5 Mg PO TID PRN Naproxen 250 Mg Tablet 250 Mg PO BID PRN Ibuprofen 600 Mg Tablet 600 Mg PO PRN Q6HRS PRN Reported Tylenol (Acetaminophen) 325 Mg Tablet 325 Mg PO PRN Q4HRS PRN Ibuprofen 800 Mg Tablet 800 Mg PO PRN Q8HRS PRN Vistaril (Hydroxyzine Pamoate) 25 Mg Capsule 25 Mg PO PRN Q4HRS PRN Prilosec (Omeprazole) 20 Mg Capsule.dr 20 Mg PO DAILY08 Allergies Allergies: Coded Allergies: povidone-iodine (Verified Allergy, Severe, RASH, HIVES, BURNING, 10/11/13) prednisone (Verified Allergy, Intermediate, 01/06/17) codeine (Verified Adverse Reaction, Intermediate, nausea and vomiting, 01/06) Physical Exam General: Alert, Oriented X3, Cooperative HEENT: Atraumatic, PERRLA Lungs: Clear to auscultation Heart: S1S2, RRR, no murmurs, no jug vein distention Abdomen: Normal bowel sounds, Soft Extremities: No edema, Normal pulses Psych/Mental Status: Mental status NL Vitals Vitals Vital Signs Date Time Temp Pulse Resp B/P (MAP) Pulse Ox O2 Delivery O2 Flow Rate FiO2 01/06/17 17:31 95 Room Air 01/06/17 15:24 97.9 74 18 114/58 (76) 97.9 Labs Labs Laboratory Tests Test 01/06/17 12:53 White Blood Count 7.2 x10^3/uL (4.0-11.0) Red Blood Count 5.05 x10^6/uL (3.50-5.40) Hemoglobin 16.9 g/dL (12.0-15.5) Hematocrit 48.8 % (36.0-47.0) Mean Corpuscular Volume 97 fL (79-100) Mean Corpuscular Hemoglobin 34 pg (25-35) Mean Corpuscular Hemoglobin Concent 35 g/dL (31-37) Red Cell Distribution Width 13.8 % (11.5-14.5) Platelet Count 209 x10^3/uL (140-400) Neutrophils (%) (Auto) 66 % (31-73) Lymphocytes (%) (Auto) 23 % (24-48) Monocytes (%) (Auto) 10 % (0-9) Eosinophils (%) (Auto) 1 % (0-3) Basophils (%) (Auto) 1 % (0-3) Neutrophils # (Auto) 4.8 x10^3uL (1.8-7.7) Lymphocytes # (Auto) 1.6 x10^3/uL (1.0-4.8) Monocytes # (Auto) 0.7 x10^3/uL (0.0-1.1) Eosinophils # (Auto) 0.1 x10^3/uL (0.0-0.7) Basophils # (Auto) 0.1 x10^3/uL (0.0-0.2) D-Dimer (Letty) < 0.27 ug/mlFEU Sodium Level 145 mmol/L (136-145) Potassium Level 4.7 mmol/L (3.5-5.1) Chloride Level 108 mmol/L (98-107) Carbon Dioxide Level 31 mmol/L (21-32) Anion Gap 6 (6-14) Blood Urea Nitrogen 10 mg/dL (7-20) Creatinine 0.8 mg/dL (0.6-1.0) Estimated GFR (Cockcroft-Gault) 77.2 Glucose Level 98 mg/dL (70-99) Calcium Level 10.5 mg/dL (8.5-10.1) Magnesium Level 1.8 mg/dL (1.8-2.4) Total Bilirubin 0.4 mg/dL (0.2-1.0) Direct Bilirubin 0.1 mg/dL (0.0-0.2) Aspartate Amino Transf (AST/SGOT) 29 U/L (15-37) Alanine Aminotransferase (ALT/SGPT) 43 U/L (14-59) Alkaline Phosphatase 81 U/L (46-116) Creatine Kinase 96 U/L (26-192) Creatine Kinase MB (Mass) 1.6 ng/mL (0.0-3.6) Creatine Kinase MB Relative Index 1.7 % (0-4) Troponin I Quantitative < 0.017 ng/mL (0.000-0.055) JB-Tfr-O-Type Natriuretic Peptide 70 pg/mL (0-124) Total Protein 6.8 g/dL (6.4-8.2) Albumin 3.7 g/dL (3.4-5.0) Lipase 125 U/L (73-393) Laboratory Tests Test 01/06/17 12:53 White Blood Count 7.2 x10^3/uL (4.0-11.0) Red Blood Count 5.05 x10^6/uL (3.50-5.40) Hemoglobin 16.9 g/dL (12.0-15.5) Hematocrit 48.8 % (36.0-47.0) Mean Corpuscular Volume 97 fL (79-100) Mean Corpuscular Hemoglobin 34 pg (25-35) Mean Corpuscular Hemoglobin Concent 35 g/dL (31-37) Red Cell Distribution Width 13.8 % (11.5-14.5) Platelet Count 209 x10^3/uL (140-400) Neutrophils (%) (Auto) 66 % (31-73) Lymphocytes (%) (Auto) 23 % (24-48) Monocytes (%) (Auto) 10 % (0-9) Eosinophils (%) (Auto) 1 % (0-3) Basophils (%) (Auto) 1 % (0-3) Neutrophils # (Auto) 4.8 x10^3uL (1.8-7.7) Lymphocytes # (Auto) 1.6 x10^3/uL (1.0-4.8) Monocytes # (Auto) 0.7 x10^3/uL (0.0-1.1) Eosinophils # (Auto) 0.1 x10^3/uL (0.0-0.7) Basophils # (Auto) 0.1 x10^3/uL (0.0-0.2) D-Dimer (Letty) < 0.27 ug/mlFEU Sodium Level 145 mmol/L (136-145) Potassium Level 4.7 mmol/L (3.5-5.1) Chloride Level 108 mmol/L (98-107) Carbon Dioxide Level 31 mmol/L (21-32) Anion Gap 6 (6-14) Blood Urea Nitrogen 10 mg/dL (7-20) Creatinine 0.8 mg/dL (0.6-1.0) Estimated GFR (Cockcroft-Gault) 77.2 Glucose Level 98 mg/dL (70-99) Calcium Level 10.5 mg/dL (8.5-10.1) Magnesium Level 1.8 mg/dL (1.8-2.4) Total Bilirubin 0.4 mg/dL (0.2-1.0) Direct Bilirubin 0.1 mg/dL (0.0-0.2) Aspartate Amino Transf (AST/SGOT) 29 U/L (15-37) Alanine Aminotransferase (ALT/SGPT) 43 U/L (14-59) Alkaline Phosphatase 81 U/L (46-116) Creatine Kinase 96 U/L (26-192) Creatine Kinase MB (Mass) 1.6 ng/mL (0.0-3.6) Creatine Kinase MB Relative Index 1.7 % (0-4) Troponin I Quantitative < 0.017 ng/mL (0.000-0.055) DS-Dbr-O-Type Natriuretic Peptide 70 pg/mL (0-124) Total Protein 6.8 g/dL (6.4-8.2) Albumin 3.7 g/dL (3.4-5.0) Lipase 125 U/L (73-393) VTE Prophylaxis Ordered VTE Prophylaxis Devices: No VTE Pharmacological Prophylaxi: No Assessment/Plan Assessment/Plan This pt with a strong family Hx of CAD and LA's comes in with chest pain. Will check enzymes and EKG's and then decide on further work up. If enzymes are negative may send the pt home tomorrow and get a stress test as an out-pt. FERNANDA VILLANUEVA MD Jan 06, 2017 19:35
[2017-01-06 19:40] VITALS: BP 96/61
[2017-01-06] MEDS: oxyCODONE/APAP 5/325 1 TAB TABLET PO PRN (21:01)
[2017-01-06] MEDS: CYCLOBENZAPRINE 10 MG TABLET. PO PRN (21:01)
[2017-01-06 23:45] VITALS: BP 90/56
[2017-01-07 03:45] VITALS: BP 81/51
[2017-01-07 07:00] VITALS: BP 93/56
[2017-01-07] MEDS: HYDROcodone/APAP 5/325MG 1 TAB TABLET PO PRN (08:46)
[2017-01-07 10:42] VITALS: BP 96/60
[2017-01-07] MEDS: CYCLOBENZAPRINE 10 MG TABLET. PO PRN ×2 (13:03→17:32)
[2017-01-07] MEDS: oxyCODONE/APAP 5/325 1 TAB TABLET PO PRN ×2 (13:07→17:32)
[2017-01-07 15:00] VITALS: BP 107/65
--- NOTE | 2017-01-07 18:02 | PDOC3 ---
Discharge Summary* Date of Admission: Jan 06, 2017 Date of Discharge: Jan 07, 2017 Admitting Diagnosis Problems Medical Problems: (1) Chest pain Status: Acute Problems: Final Diagnosis Chest pain Back pain Anxiety Brief Hospital Course This patient is a 46-year-old lady that has a very strong family history for coronary artery disease. She has been under extreme stress. Situations due to family issues. The patient developed some chest tightness with shortness of breath and mild diaphoresis and came in to the emergency room where she was seen and evaluated and he was decided to admit her. After she came in she also stated that she has been having back pains and has known history of arthritis and back issues and has been seeing a neurologist in for the back problems. They had started her on muscle relaxants and pain pills. Once the patient was admitted multiple tests were done please see the chart for those reports. The patient was monitored and she remaining sinus rhythm and her enzymes were negative. The EKGs were unchanged. Today she is resting comfortably and not having anymore chest pains but is complaining of the back pain. Her back pain is a chronic situation therefore I would like to refer her to go to her neurologist in to address the issues with that and since the NH has been ruled out I we will discharge the patient today to be followed as an outpatient with a possible stress test to be done. I have discussed the situation with the patient as well and follow-up, medications, diet, and activity. Medications: See MRAD. Patient discharged home in a stable condition CONDITION AT DISCHARGE: Stable Scheduled Naproxen (Naprosyn), 1 TAB PO BID Omeprazole (Prilosec), 20 MG PO DAILY08, (Reported) Scheduled PRN Acetaminophen (Tylenol), 325 MG PO PRN Q4HRS PRN for PAIN, (Reported) Cyclobenzaprine Hcl (Cyclobenzaprine Hcl), 1 TAB PO TID PRN for MUSCLE PAIN Diazepam (Valium), 5 MG PO TID PRN for PAIN Hydrocodone/Apap 5-325 (Bunkie 5-325 Tablet), 1 TAB PO Q4-6HRS PRN for PAIN Hydroxyzine Pamoate (Vistaril), 25 MG PO PRN Q4HRS PRN for NAUSEA/VOMITING, ( Reported) Ibuprofen (Ibuprofen), 800 MG PO PRN Q8HRS PRN for PAIN, (Reported) Ibuprofen (Ibuprofen), 600 MG PO PRN Q6HRS PRN for INFLAMMATION Naproxen (Naproxen), 250 MG PO BID PRN for PAIN Time Spent Total time spent with patient [] minutes for coordination of care, counseling, and education. FERNANDA VILLANUEVA MD Jan 07, 2017 18:02
== END 2017-01-07 17:51 | disposition home or self-care (01) | DRG 313 ==
LOC: ER 12:02 → 6 SOUTH 13:30
PROVIDERS: ADMIT Internal Medicine Cardiovascular Disease; ATTEND Internal Medicine Cardiovascular Disease
DX: R07.9 Chest pain, unspecified (principal); F41.9 Anxiety disorder, unspecified; I10 Essential (primary) hypertension; Z82.49 Family history of ischemic heart disease and other diseases of the circulatory system; Z87.891 Personal history of nicotine dependence; Z90.49 Acquired absence of other specified parts of digestive tract; F32.9 Major depressive disorder, single episode, unspecified; G43.909 Migraine, unspecified, not intractable, without status migrainosus; M19.90 Unspecified osteoarthritis, unspecified site; Z90.89 Acquired absence of other organs; Z91.041 Radiographic dye allergy status
CPT/HCPCS: 36415; 71020; 80048; 80076; 82553; 83690; 83735; 83880; 84484; 85027; 85379; 93005; 96374; 96375; J1885; J2270; 99285-25

== ENCOUNTER → 2017-06-04 | Outpatient (CLI) | payer OTHER | END | disposition home or self-care (01) | LOC: KCIC 12:45 | DX: M51.36 Other intervertebral disc degeneration, lumbar region (principal); M43.8X4 Other specified deforming dorsopathies, thoracic region; G71.0 Muscular dystrophy | CPT/HCPCS: 72040; 72072; 72100 ==

== ENCOUNTER → 2017-07-08 | Outpatient (CLI) | payer OTHER | END | disposition home or self-care (01) | LOC: KCIC MRI 11:52 | DX: G71.11 Myotonic muscular dystrophy (principal); M50.30 Other cervical disc degeneration, unspecified cervical region; M25.78 Osteophyte, vertebrae | CPT/HCPCS: 72141; 72146 ==

== ENCOUNTER → 2017-07-23 | Outpatient (CLI) | payer OTHER ==
[~2017-07-23] MED LIST changes: -ACET325T9 PO; -CYCL10TA2 PO; -DIAZ5TAB PO; -HYDR-971 PO; -HYDR25CA PO; -IBUP-1007 PO; -IBUP-1060 PO; +IOHEXOL 180 MG/ML 10 ML VIAL.; -NAPR250T2 PO; -NAPR500T PO; -OMEP20CA5 PO; +methylPREDNISolone ACETATE 40 MG/ML VIAL.; +methylPREDNISolone ACETATE 80 MG/ML VIAL.
== END | disposition home or self-care (01) ==
LOC: PNCL 08:34
DX: M54.2 Cervicalgia (principal); M50.13 Cervical disc disorder with radiculopathy, cervicothoracic region; F17.210 Nicotine dependence, cigarettes, uncomplicated; F32.9 Major depressive disorder, single episode, unspecified; F41.9 Anxiety disorder, unspecified; K21.9 Gastro-esophageal reflux disease without esophagitis; Z87.442 Personal history of urinary calculi; Z90.49 Acquired absence of other specified parts of digestive tract; Z88.1 Allergy status to other antibiotic agents; Z72.0 Tobacco use
CPT/HCPCS: 62321; 62323; J1030; J1040; Q9965

== ENCOUNTER → 2017-08-06 | Outpatient (CLI) | payer OTHER | LOC: PNCL 09:02 | DX: M50.13 Cervical disc disorder with radiculopathy, cervicothoracic region (principal); Z90.49 Acquired absence of other specified parts of digestive tract; K21.9 Gastro-esophageal reflux disease without esophagitis; Z98.890 Other specified postprocedural states; Z87.442 Personal history of urinary calculi; F41.9 Anxiety disorder, unspecified; F17.210 Nicotine dependence, cigarettes, uncomplicated | CPT/HCPCS: 62321; J1030; J1040; Q9965 ==

== ENCOUNTER → 2017-08-20 | Outpatient (CLI) | payer OTHER | LOC: PNCL 09:02 | DX: M50.13 Cervical disc disorder with radiculopathy, cervicothoracic region (principal); M51.34 Other intervertebral disc degeneration, thoracic region; Z79.899 Other long term (current) drug therapy; Z79.891 Long term (current) use of opiate analgesic; Z88.8 Allergy status to other drugs, medicaments and biological substances; Z91.041 Radiographic dye allergy status; G51.0 Bell's palsy | CPT/HCPCS: 62321; J1030; J1040; Q9965 ==

== ENCOUNTER → 2017-09-05 | Outpatient (CLI) | payer OTHER | END | disposition home or self-care (01) | LOC: KCIC MAMMO 14:09 | DX: Z12.31 Encounter for screening mammogram for malignant neoplasm of breast (principal) | CPT/HCPCS: 77067 ==

== ENCOUNTER → 2017-09-23 | Outpatient (CLI) | payer OTHER | END | disposition home or self-care (01) | LOC: KCIC MRI 09:59 | DX: M75.21 Bicipital tendinitis, right shoulder (principal); M12.811 Other specific arthropathies, not elsewhere classified, right shoulder; J98.6 Disorders of diaphragm; R91.8 Other nonspecific abnormal finding of lung field | CPT/HCPCS: 71046; 73221 ==

== ENCOUNTER 2021-07-14 22:50 | Inpatient (IN) | payer OTHER, MEDICARE ==
[~2021-07-14] VITALS: Ht 162.6 cm; Wt 100.8 kg
[~2021-07-14 22:50] MED LIST changes: +ACET325T9 PO; +CITA40TA12 PO; +CYCL10TA19 PO; +DIAZ5TAB PO; +HYDR-2765 PO; +HYDR-3164 PO; +HYDR25CA PO; +IBUP-1007 PO; +IBUP-1060 PO; -IOHEXOL 180 MG/ML 10 ML VIAL.; +MULT-445 PO; +NAPR-683 PO; +NAPR-699 PO; +OMEP20CA5 PO; +VALIUM10 MG PO; -methylPREDNISolone ACETATE 40 MG/ML VIAL.; -methylPREDNISolone ACETATE 80 MG/ML VIAL.
--- NOTE | 2021-07-15 00:51 | PHYS DOC ---
Past Medical History Past Medical History: Depression, Migraines, UTI, Other Additional Past Medical Histor: DISTONIA, back pain, miotonic distrophy type 1 Past Surgical History: Appendectomy, Cholecystectomy, , Other Additional Past Surgical Histo: L breast bipsy, ELBOW SX, uterine ablation Smoking Status: Current Every Day Smoker Alcohol Use: Occasionally Drug Use: None General Adult EDM: Chief Complaint: SHORTNESS OF BREATH HPI: HPI: Patient is a 51 year old female who presents with 3-week history of cough, shortness of breath, wheezing, which is progressively worsened over the last week or so. She reports that she is coughing up streaks of blood in her clear sputum. She denies chest pain. She reports that she has had fevers and chills. She has not been vaccinated against COVID-19 or influenza. She was seen at an urgent care about 2 weeks ago, she was given a prescription for oral doxycycline. She reported no improvement after this. She has not seen her primary care doctor for this. She denies lower extremity pain or swelling. She denies darryl mopped assist. She denies dizziness, diaphoresis, syncope or near syncope. She denies abdominal pain, nausea or vomiting. She smokes tobacco. She has been wheezing significantly. She does not have a formal diagnosis of any sort of obstructive pulmonary disease. She denies recent travel history, denies recent hospitalization within the last 90 days. Review of Systems: Review of Systems: Constitutional: Fever and chills. Eyes: Denies change in visual acuity. [] HENT: Nasal congestion and intermittent mild epistaxis. Denies sore throat. Denies voice changes or difficulty swallowing Respiratory: Cough, dyspnea, wheezing Cardiovascular: Denies chest pain or edema. [] GI: Denies abdominal pain, nausea, vomiting Musculoskeletal: Chronic myalgias and back pain, unchanged. Integument: Denies rash. [] Neurologic: Denies headache, focal weakness or sensory changes. [] Psychiatric: Denies depression or anxiety. [] Heart Score: C/O Chest Pain: No Risk Factors: Risk Factors: DM, Current or recent (<one month) smoker, HTN, HLP, family histo ry of CAD, obesity. Risk Scores: Score 0 - 3: 2.5% MACE over next 6 weeks - Discharge Home Score 4 - 6: 20.3% MACE over next 6 weeks - Admit for Clinical Observation Score 7 - 10: 72.7% MACE over next 6 weeks - Early Invasive Strategies Allergies: Allergies: Allergies Coded Allergies Type Severity Reaction Last Updated Verified povidone-iodine Allergy Severe RASH, HIVES, BURNING 10/11/13 Yes cephalexin Allergy Intermediate 08/06/17 Yes duloxetine Allergy Intermediate 08/06/17 Yes prednisone Allergy Intermediate 01/06/17 Yes Physical Exam: PE: Constitutional: Well developed, well nourished, no acute distress, non-toxic appearance. [] HENT: Normocephalic, atraumatic, oropharynx is patent and clear, mucous membrane s are moist Eyes: Conjunctiva normal, no discharge. Sclera are anicteric. Neck: Normal range of motion, no tenderness, supple, no stridor. Trachea midline, no JVD, no meningismus Cardiovascular:Heart rate regular rhythm, +2 radial and +2 posterior tibial pulses bilaterally Lungs & Thorax: Mild to moderate tachypnea, inspiratory and expiratory wheezing, coarse rhonchi bilaterally. No stridor. No cyanosis. Speaks in full and clear sentences Abdomen: Abdomen is soft, obese, nondistended, nontender to palpation. Skin: Warm, dry, no erythema, no rash. No diaphoresis. Back: No tenderness, no CVA tenderness. [] Extremities: No tenderness, no cyanosis, no clubbing, ROM intact, no edema. No calf tenderness. Neurologic: Alert and oriented X 3, normal motor function, normal sensory function, no focal deficits noted. [] Psychologic: Affect slightly anxious, she is cooperative EKG: EKG: EKG is interpreted at 0126 Rhythm is sinus Rate is 100 bpm low voltage marked artifact No STEMI Radiology/Procedures: Radiology/Procedures: IMAGING REPORT Signed PATIENT: ZANDER AGUILAROUNT: [id number] : 1970 LOCATION: ER AGE: 51 SEX: F EXAM STATUS: REG ER ORD. PHYSICIAN: NAGA TRIMBLE DO REASON: dyspnea, wheezing,cough, fever PROCEDURE: PORTABLE CHEST 1V XR CHEST 1V INDICATION: dyspnea, wheezing,cough, fever / Spl. Instructions: / History: . COMPARISON STUDY: 09/23/2017. FINDINGS: Lungs: Elevation of the right hemidiaphragm. Mild right basilar opacities Pleura: No pleural effusion or pneumothorax. Heart and Mediastinum: The cardiomediastinal silhouette is normal. The great vessels of the thorax are normal. IMPRESSION: Elevation of the right hemidiaphragm with mild right basilar opacities, probably subsegmental atelectasis although a superimposed infection is not entirely excluded. Electronically signed by: Cristy Resendiz MD (07/15/2021 2:53 AM) [facility] DICTATED and SIGNED BY: CRISTY RESENDIZ MD DATE: 07/15/21 [id number] IMAGING REPORT Signed PATIENT: ZANDER AGUILAR KACCOUNT: [id number] : 1970 LOCATION: ER AGE: 51 SEX: F EXAM STATUS: REG ER ORD. PHYSICIAN: NAGA TRIMBLE DO REASON: cough, concern for LLL abnormality, hemoptysis, OMNI 350 100 ML IV PROCEDURE: CT ANGIOGRAPHY CHEST CTA CHEST INDICATION: cough, concern for LLL abnormality, hemoptysisradiograph 07/15/2021 Comparison: None. TECHNIQUE: Following the uneventful administration of intravenous contrast, 100 cc Omnipaque 350, axial CT sections were obtained through the lungs and upper abdomen. Multiplanar reconstructions and MIP images were obtained. PQRS compliance statement: One or more of the following individualized dose reduction techniques were utilized for this examination: 1. Automated exposure control 2. Adjustment of the mA and/or kV according to patient size 3. Use of iterative reconstruction technique FINDINGS: Pulmonary arteries: No evidence of pulmonary thromboembolic disease. Lungs and Airways: Elevation of the right hemidiaphragm. Bibasilar dependent, subsegmental, and relaxation atelectasis. Bilateral perihilar groundglass and nodular opacities. Pleura: The pleural spaces are normal. Heart and Mediastinum: The visualized thyroid is normal in size and attenuation. No axillary or supraclavicular lymphadenopathy. No mediastinal, hilar or retrocrural lymphadenopathy. Calcified right hilar lymph nodes consistent with remote granulomatous disease. The heart and pericardium are within normal limits. The great vessels of the thorax are normal. Abdomen: Cholecystectomy. Hepatic steatosis. Bones and Soft Tissues: The visualized bones and chest wall soft tissues are within normal limits. IMPRESSION: 1. No evidence of pulmonary thromboembolic disease. 2. Bilateral perihilar groundglass and nodular opacities, probably an infectious/inflammatory process. Electronically signed by: Cristy Resendiz MD (07/15/2021 4:18 AM) [facility] DICTATED and SIGNED BY: CRISTY RESENDIZ MD DATE: 07/15/21 [id number] 0 Course & Med Decision Making: Course & Med Decision Making Pertinent Labs and Imaging studies reviewed. (See chart for details) The patient is given IV fluids, duo nebs and albuterol neb. Wheezing is still quite pronounced, but improved. She required supplemental oxygen, 2 L per nasal cannula, secondary to mild hypoxia. She desaturated to the mid to high 80s on room air. She is given p.o. Tessalon Perles for her cough. Her coughing is improved at this time. She is saturating well on supplemental oxygen. Blood cultures and lactate are ordered. She is empirically given IV Rocephin and p.o. azithromycin. She assures me that she has taken some third-generation cephalosporins that difficulty, despite having reported allergy to Keflex. I have discussed the findings, differential diagnosis and plan of care with her. I recommend hospitalization, pulmonary consult, she is comfortable with this plan. She is excepted for admission by Dr. Guy. Kye Disclaimer: Kye Disclaimer: This electronic medical record was generated, in whole or in part, using a voice recognition dictation system. Departure Departure Impression: Primary Impression: Respiratory failure with hypoxia Qualified Codes: J96.01 - Acute respiratory failure with hypoxia Additional Impressions: Community acquired pneumonia Bronchospasm Tobacco use Disposition: ADMITTED INPATIENT Admitting Physician: ADAMARISS (Dr. Guy) Condition: STABLE Referrals: MYRIAM GONZALEZ MD (PCP) NAGA TRIMBLE DO Jul 15, 2021 00:50
[2021-07-15] MEDS ORDERED: IPRATRPIUM/ALBUTEROL 0.5/2.5MG 3 ML NEBU. NEB ONE (02:00)
[2021-07-15 02:26] LABS: BASO % 1 % (0-3); EOS # 0.1 x10^3/uL (0.0-0.7); EOS % 2 % (0-3); HEMATOCRIT 50.6 % (36.0-47.0); HEMOGLOBIN 16.6 g/dL (12.0-15.5); LYMPH # 1.9 x10^3/uL (1.0-4.8); LYMPH % 43 % (24-48); MEAN CORPUSCULAR HEMOGLOBIN 33 pg (25-35); MEAN CORPUSCULAR HGB CONC 33 g/dL (31-37); MEAN CORPUSCULAR VOLUME 100 fL (79-100); MONO # 0.5 x10^3/uL (0.0-1.1); MONO % 11 % (0-9); NEUT # 1.8 x10^3/uL (1.8-7.7); NEUT % 42 % (31-73); PLATELET COUNT 185 x10^3/uL (140-400); RED BLOOD COUNT 5.09 x10^6/uL (3.50-5.40); RED CELL DISTRIBUTION WIDTH 14.3 % (11.5-14.5); WHITE BLOOD COUNT 4.3 x10^3/uL (4.0-11.0)
[2021-07-15 02:38] LABS: CALCIUM 8.9 mg/dL (8.5-10.1); CREATININE 0.8 mg/dL (0.6-1.0); GFR 75.6; POTASSIUM 3.7 mmol/L (3.5-5.1)
[2021-07-15 02:41] LABS: INFLUENZA A PATIENT NEGATIVE (NEGATIVE); INFLUENZA B PATIENT NEGATIVE (NEGATIVE)
--- NOTE | 2021-07-15 02:42 | EKG ---
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
[2021-07-15 02:51] LABS: ALBUMIN 2.9 g/dL (3.4-5.0); ALBUMIN/GLOBULIN RATIO 0.6 (1.0-1.7); TOTAL BILIRUBIN 0.3 mg/dL (0.2-1.0); TOTAL PROTEIN 7.9 g/dL (6.4-8.2)
--- NOTE | 2021-07-15 02:56 | RAD ---
XR CHEST 1V INDICATION: dyspnea, wheezing,cough, fever / Spl. Instructions: / History: . COMPARISON STUDY: 09/23/2017. FINDINGS: Lungs: Elevation of the right hemidiaphragm. Mild right basilar opacities Pleura: No pleural effusion or pneumothorax. Heart and Mediastinum: The cardiomediastinal silhouette is normal. The great vessels of the thorax ar e normal. IMPRESSION: Elevation of the right hemidiaphragm with mild right basilar opacities, probably subsegmental atelect asis although a superimposed infection is not entirely excluded. Electronically signed by: Robin Resendiz MD (07/15/2021 2:53 AM) [facility]
[2021-07-15] MEDS ORDERED: BENZONATATE 100 MG CAPSULE. PO ONE (03:30)
[2021-07-15] MEDS ORDERED: IV NORMAL SALINE 1000ML BAG 1,000 ML IV ONE ×2 (03:30→06:00)
[2021-07-15] MEDS ORDERED: ALBUTEROL SULFATE 2.5 MG/3 ML NEBU. NEB ONE (04:00)
[2021-07-15] MEDS ORDERED: CONTRAST GIVEN. MC PRN (04:00)
--- NOTE | 2021-07-15 04:20 | RAD ---
CTA CHEST INDICATION: cough, concern for LLL abnormality, hemoptysisradiograph 07/15/2021 Comparison: None. TECHNIQUE: Following the uneventful administration of intravenous contrast, 100 cc Omnipaque 350, axi al CT sections were obtained through the lungs and upper abdomen. Multiplanar reconstructions and MIP images were obtained. RS compliance statement: One or more of the following individualized dose reduction techniques were utilized for this examinat ion: 1. Automated exposure control 2. Adjustment of the mA and/or kV according to patient size 3. Use of iterative reconstruction technique FINDINGS: Pulmonary arteries: No evidence of pulmonary thromboembolic disease. Lungs and Airways: Elevation of the right hemidiaphragm. Bibasilar dependent, subsegmental, and relax ation atelectasis. Bilateral perihilar groundglass and nodular opacities. Pleura: The pleural spaces are normal. Heart and Mediastinum: The visualized thyroid is normal in size and attenuation. No axillary or supra clavicular lymphadenopathy. No mediastinal, hilar or retrocrural lymphadenopathy. Calcified right hil ar lymph nodes consistent with remote granulomatous disease. The heart and pericardium are within nor mal limits. The great vessels of the thorax are normal. Abdomen: Cholecystectomy. Hepatic steatosis. Bones and Soft Tissues: The visualized bones and chest wall soft tissues are within normal limits. IMPRESSION: 1. No evidence of pulmonary thromboembolic disease. 2. Bilateral perihilar groundglass and nodular opacities, probably an infectious/inflammatory process . Electronically signed by: Robin Resendiz MD (07/15/2021 4:18 AM) [facility]
[2021-07-15] MEDS ORDERED: IOHEXOL 350 MG/ML 100 ML VIAL. IV ONE (04:30)
[2021-07-15] MEDS ORDERED: AZITHROMYCIN 250 MG TABLET. PO ONE (05:30)
[2021-07-15] MEDS ORDERED: cefTRIAXone IV Push 1 GM VIAL. IVP ONE (05:30)
[2021-07-15] MEDS ORDERED: ACETAMINOPHEN 325 MG TABLET. PO PRN ×2 (06:00→12:45)
[2021-07-15] MEDS ORDERED: ONDANSETRON PF 4 MG/2 ML VIAL. IVP PRN (06:00)
[2021-07-15 08:00] VITALS: BP 110/70
[2021-07-15] MEDS ORDERED: CYCL10TA19 PO (09:09)
[2021-07-15 11:00] VITALS: BP 127/73
--- NOTE | 2021-07-15 11:55 | PDOC ---
PULMONARY PROGRESS NOTES DATE: 07/15/21 TIME: 11:47 Vitals Vital Signs Date Time Temp Pulse Resp B/P (MAP) Pulse Ox O2 Delivery O2 Flow Rate FiO2 07/15/21 08:00 98.4 96 18 110/70 (83) 90 Nasal Cannula 2.0 98.4 Labs Laboratory Tests Test 07/15/21 02:10 White Blood Count 4.3 x10^3/uL (4.0-11.0) Red Blood Count 5.09 x10^6/uL (3.50-5.40) Hemoglobin 16.6 g/dL (12.0-15.5) Hematocrit 50.6 % (36.0-47.0) Mean Corpuscular Volume 100 fL (79-100) Mean Corpuscular Hemoglobin 33 pg (25-35) Mean Corpuscular Hemoglobin Concent 33 g/dL (31-37) Red Cell Distribution Width 14.3 % (11.5-14.5) Platelet Count 185 x10^3/uL (140-400) Neutrophils (%) (Auto) 42 % (31-73) Lymphocytes (%) (Auto) 43 % (24-48) Monocytes (%) (Auto) 11 % (0-9) Eosinophils (%) (Auto) 2 % (0-3) Basophils (%) (Auto) 1 % (0-3) Neutrophils # (Auto) 1.8 x10^3/uL (1.8-7.7) Lymphocytes # (Auto) 1.9 x10^3/uL (1.0-4.8) Monocytes # (Auto) 0.5 x10^3/uL (0.0-1.1) Eosinophils # (Auto) 0.1 x10^3/uL (0.0-0.7) Basophils # (Auto) 0.0 x10^3/uL (0.0-0.2) Sodium Level 146 mmol/L (136-145) Potassium Level 3.7 mmol/L (3.5-5.1) Chloride Level 105 mmol/L (98-107) Carbon Dioxide Level 32 mmol/L (21-32) Anion Gap 9 (6-14) Blood Urea Nitrogen 6 mg/dL (7-20) Creatinine 0.8 mg/dL (0.6-1.0) Estimated GFR (Cockcroft-Gault) 75.6 BUN/Creatinine Ratio 8 (6-20) Glucose Level 104 mg/dL (70-99) Lactic Acid Level 1.6 mmol/L (0.4-2.0) Calcium Level 8.9 mg/dL (8.5-10.1) Magnesium Level 2.0 mg/dL (1.8-2.4) Total Bilirubin 0.3 mg/dL (0.2-1.0) Aspartate Amino Transf (AST/SGOT) 60 U/L (15-37) Alanine Aminotransferase (ALT/SGPT) 85 U/L (14-59) Alkaline Phosphatase 107 U/L (46-116) Troponin I High Sensitivity 15 ng/L (4-50) RC-Sdn-L-Type Natriuretic Peptide 181 pg/mL (0-124) Total Protein 7.9 g/dL (6.4-8.2) Albumin 2.9 g/dL (3.4-5.0) Albumin/Globulin Ratio 0.6 (1.0-1.7) Influenza Type A Antigen Negative (NEGATIVE) Influenza Type B Antigen Negative (NEGATIVE) SARS-CoV-2 Antigen (Rapid) Negative (NEGATIVE) Laboratory Tests Test 07/15/21 02:10 White Blood Count 4.3 x10^3/uL (4.0-11.0) Red Blood Count 5.09 x10^6/uL (3.50-5.40) Hemoglobin 16.6 g/dL (12.0-15.5) Hematocrit 50.6 % (36.0-47.0) Mean Corpuscular Volume 100 fL (79-100) Mean Corpuscular Hemoglobin 33 pg (25-35) Mean Corpuscular Hemoglobin Concent 33 g/dL (31-37) Red Cell Distribution Width 14.3 % (11.5-14.5) Platelet Count 185 x10^3/uL (140-400) Neutrophils (%) (Auto) 42 % (31-73) Lymphocytes (%) (Auto) 43 % (24-48) Monocytes (%) (Auto) 11 % (0-9) Eosinophils (%) (Auto) 2 % (0-3) Basophils (%) (Auto) 1 % (0-3) Neutrophils # (Auto) 1.8 x10^3/uL (1.8-7.7) Lymphocytes # (Auto) 1.9 x10^3/uL (1.0-4.8) Monocytes # (Auto) 0.5 x10^3/uL (0.0-1.1) Eosinophils # (Auto) 0.1 x10^3/uL (0.0-0.7) Basophils # (Auto) 0.0 x10^3/uL (0.0-0.2) Sodium Level 146 mmol/L (136-145) Potassium Level 3.7 mmol/L (3.5-5.1) Chloride Level 105 mmol/L (98-107) Carbon Dioxide Level 32 mmol/L (21-32) Anion Gap 9 (6-14) Blood Urea Nitrogen 6 mg/dL (7-20) Creatinine 0.8 mg/dL (0.6-1.0) Estimated GFR (Cockcroft-Gault) 75.6 BUN/Creatinine Ratio 8 (6-20) Glucose Level 104 mg/dL (70-99) Lactic Acid Level 1.6 mmol/L (0.4-2.0) Calcium Level 8.9 mg/dL (8.5-10.1) Magnesium Level 2.0 mg/dL (1.8-2.4) Total Bilirubin 0.3 mg/dL (0.2-1.0) Aspartate Amino Transf (AST/SGOT) 60 U/L (15-37) Alanine Aminotransferase (ALT/SGPT) 85 U/L (14-59) Alkaline Phosphatase 107 U/L (46-116) Troponin I High Sensitivity 15 ng/L (4-50) VG-Bgf-M-Type Natriuretic Peptide 181 pg/mL (0-124) Total Protein 7.9 g/dL (6.4-8.2) Albumin 2.9 g/dL (3.4-5.0) Albumin/Globulin Ratio 0.6 (1.0-1.7) Influenza Type A Antigen Negative (NEGATIVE) Influenza Type B Antigen Negative (NEGATIVE) SARS-CoV-2 Antigen (Rapid) Negative (NEGATIVE) Medications Active Scripts Medications Dose Route/Sig Max Daily Dose Days Date Category Cyclobenzaprine Hcl 10 Mg Tablet 1 Tab PO TID 07/15/21 Reported Multivitamins (Multivitamin) 1 Each Tablet 1 Tab PO DAILY 08/06/17 Reported Valium (Diazepam) 10 Mg Tablet 10 Mg PO QID PRN 07/23/17 Reported Hydrocodone-Apap 7.5-325 (Hydrocodone Bit/Acetaminophen) 1 Each Tablet 1 Tab PO PRN Q6HRS PRN 07/23/17 Reported Tylenol (Acetaminophen) 325 Mg Tablet 325 Mg PO PRN Q4HRS PRN 10/08/13 Reported Ibuprofen 800 Mg Tablet 800 Mg PO PRN Q8HRS PRN 10/08/13 Reported Impression . Full note dictated Continue empiric antibiotics Continue oxygen supplementation See orders IAIN SLATER MD Jul 15, 2021 11:55
--- NOTE | 2021-07-15 13:48 | PDOC ---
GENERAL General: History and physical [id number] VITAL SIGNS Vital Signs/I&O: Vital Signs Date Time Temp Pulse Resp B/P (MAP) Pulse Ox O2 Delivery O2 Flow Rate FiO2 07/15/21 08:00 98.4 96 18 110/70 (83) 90 Nasal Cannula 2.0 98.4 ALLERGIES Allergies: Allergies Coded Allergies Type Severity Reaction Last Updated Verified povidone-iodine Allergy Severe RASH, HIVES, BURNING 10/11/13 Yes cephalexin Allergy Intermediate 08/06/17 Yes duloxetine Allergy Intermediate 08/06/17 Yes prednisone Allergy Intermediate 01/06/17 Yes MEDS Medications: Current Medications Medications (Trade) Dose Ordered Sig/Mirza Route PRN Reason Start Time Stop Time Status Last Admin Dose Admin Albuterol/ Ipratropium (Duoneb) 3 ml 1X ONCE NEB 07/15/21 02:00 07/15/21 02:01 DC 07/15/21 02:00 Benzonatate (Tessalon Perle) 200 mg 1X ONCE PO 07/15/21 03:30 07/15/21 03:31 DC 07/15/21 03:08 Sodium Chloride 1,000 ml @ 1,000 mls/hr 1X ONCE IV 07/15/21 03:30 07/15/21 04:29 DC 07/15/21 03:08 Albuterol Sulfate (Ventolin Neb Soln) 2.5 mg 1X ONCE NEB 07/15/21 04:00 07/15/21 04:01 DC 07/15/21 05:08 Iohexol (Omnipaque 350 Mg/ml) 100 ml 1X ONCE IV 07/15/21 04:30 07/15/21 04:31 DC 07/15/21 04:04 Ceftriaxone Sodium (Rocephin) 2 gm 1X ONCE IVP 07/15/21 05:30 07/15/21 05:31 DC 07/15/21 06:17 Azithromycin (Zithromax) 500 mg 1X ONCE PO 07/15/21 05:30 07/15/21 05:31 DC 07/15/21 06:16 Acetaminophen (Tylenol) 650 mg PRN Q4HRS PRN PO MILD PAIN / TEMP > 100.3'F 07/15/21 06:00 07/15/21 13:01 DC 07/15/21 10:20 Sodium Chloride 1,000 ml @ 75 mls/hr 1X ONCE IV 07/15/21 06:00 07/15/21 19:19 07/15/21 06:17 LAB Lab: Laboratory Tests Test 07/15/21 02:10 White Blood Count 4.3 x10^3/uL (4.0-11.0) Red Blood Count 5.09 x10^6/uL (3.50-5.40) Hemoglobin 16.6 g/dL (12.0-15.5) H Hematocrit 50.6 % (36.0-47.0) H Mean Corpuscular Volume 100 fL (79-100) Mean Corpuscular Hemoglobin 33 pg (25-35) Mean Corpuscular Hemoglobin Concent 33 g/dL (31-37) Red Cell Distribution Width 14.3 % (11.5-14.5) Platelet Count 185 x10^3/uL (140-400) Neutrophils (%) (Auto) 42 % (31-73) Lymphocytes (%) (Auto) 43 % (24-48) Monocytes (%) (Auto) 11 % (0-9) H Eosinophils (%) (Auto) 2 % (0-3) Basophils (%) (Auto) 1 % (0-3) Neutrophils # (Auto) 1.8 x10^3/uL (1.8-7.7) Lymphocytes # (Auto) 1.9 x10^3/uL (1.0-4.8) Monocytes # (Auto) 0.5 x10^3/uL (0.0-1.1) Eosinophils # (Auto) 0.1 x10^3/uL (0.0-0.7) Basophils # (Auto) 0.0 x10^3/uL (0.0-0.2) Sodium Level 146 mmol/L (136-145) H Potassium Level 3.7 mmol/L (3.5-5.1) Chloride Level 105 mmol/L (98-107) Carbon Dioxide Level 32 mmol/L (21-32) Anion Gap 9 (6-14) Blood Urea Nitrogen 6 mg/dL (7-20) L Creatinine 0.8 mg/dL (0.6-1.0) Estimated GFR (Cockcroft-Gault) 75.6 BUN/Creatinine Ratio 8 (6-20) Glucose Level 104 mg/dL (70-99) H Lactic Acid Level 1.6 mmol/L (0.4-2.0) Calcium Level 8.9 mg/dL (8.5-10.1) Magnesium Level 2.0 mg/dL (1.8-2.4) Total Bilirubin 0.3 mg/dL (0.2-1.0) Aspartate Amino Transferase (AST) 60 U/L (15-37) H Alanine Aminotransferase (ALT) 85 U/L (14-59) H Alkaline Phosphatase 107 U/L (46-116) Troponin I High Sensitivity 15 ng/L (4-50) YE-Dyi-B-Type Natriuretic Peptide 181 pg/mL (0-124) H Total Protein 7.9 g/dL (6.4-8.2) Albumin 2.9 g/dL (3.4-5.0) L Albumin/Globulin Ratio 0.6 (1.0-1.7) L Influenza Type A Antigen Negative (NEGATIVE) Influenza Type B Antigen Negative (NEGATIVE) SARS-CoV-2 Antigen (Rapid) Negative (NEGATIVE) Laboratory Tests 07/15/21 02:10 Laboratory Tests 07/15/21 02:10 Justifications for Admission Other Justification MIKHAIL PACHECO MD Jul 15, 2021 13:48
[2021-07-15] MEDS ORDERED: cefTRIAXone IV Push 1 GM VIAL. IVP SCH (14:00)
[2021-07-15] MEDS ORDERED: AZITHROMYCIN 500 MG in IV NORMAL SALINE 250ML 250 ML IV SCH (14:00)
[2021-07-15] MEDS ORDERED: ALBUTEROL SULFATE 8GM INHALER. INH PRN (14:30)
--- NOTE | 2021-07-15 14:40 | HP ---
DATE OF SERVICE: 07/15/2021 ADMIT DATE: 07/15/2021 HISTORY OF PRESENT ILLNESS: This patient is a 51-year-old woman who is a continuity outpatient of Dr. Mejia who uses the [facility] hospitalist here at [facility], I am rounding for them this weekend. She also sees the Neurom[facility] Clinic at [facility]. The patient has had deep cough and congestion for the last 3-1/2 weeks. She says that her and 2 adult children who live with her have been fine. She went to Urgent Care a couple of weeks ago and was treated with a 5-day course of doxycycline. She has not been able to tolerate Medrol Dosepak in the past. She is not sure about other steroids. She says that when she takes steroid, her legs become weaker. She has muscular dystrophy that was diagnosed about 3 years ago when her grandson was diagnosed at 5 years old. She and her family all follow with the Neuromuscular Clinic at [facility]. She is on disability from this. The patient presented to the Emergency Department last night with overwhelming cough, congestion, and worsening dyspnea. She says that she has had 2 negative COVID tests in the last few weeks, one of which was a home test and the other she believes was a PCR test. She and her family have not had any COVID vaccination nor has she had the flu vaccine this year. She says she is too worried to get the COVID vaccination in light of her underlying medical issues. She denies any chest pain, palpitations, documented fevers at home, although she has had some subjective rigors and chills. She has had some watery diarrhea over the last few days. She denies any nausea, vomiting, or abdominal pain. All systems reviewed and otherwise negative. PAST MEDICAL HISTORY: 1. Muscular dystrophy, for which she follows with [facility]. 2. Chronic full body pain. 3. Chronic cigarette use. 4. Obesity. 5. History of Burdick's palsy. MEDICATIONS: Please see the medication reconciliation form. SOCIAL HISTORY: The patient is . She and her and family live independently in their own home. She smokes about a pack a day of tobacco, but she is committed to tobacco cessation at this point. She does not take any alcohol or illicit drugs. She is retired on disability due to her muscular dystrophy. She is a full code. FAMILY HISTORY: Notable for the muscular dystrophy. PHYSICAL EXAMINATION: VITAL SIGNS: Reviewed since admission and are notable for that the patient has been afebrile. Blood pressure has been in the 120s-140s over 80s, heart rate is in the 90s and regular. She is coughing vigorously throughout the exam, saturating between 90% and 95% on 2 liters. GENERAL: She is a 51-year-old woman who is uncomfortable from all the coughing, alert and oriented x 3, in no acute distress. HEENT: Unremarkable for acute abnormality. NECK: Soft and supple. No adenopathy or thyromegaly noted. CHEST: Bilateral equal air entry with wheezing throughout. HEART: S1, S2 normal. Regular rate and rhythm. No murmurs or gallops are noted. ABDOMEN: Obese, soft, nontender, nondistended. No masses or organomegaly noted. EXTREMITIES: Notable for some muscle wasting. She has full range of motion in all groups. Pulses are intact. No edema, rashes or lesions are noted. LABORATORY AND OTHER STUDIES: Admission white count is 4.3, hemoglobin is 16.6, platelet count is 185. Chemistry panel is notable for serum sodium of 146. Electrolytes are unremarkable. Creatinine is 0.8. Liver function tests with 60 and 80 AST and ALT respectively. BNP is at 181. Troponin is in range. Imaging is notable for a CT angio of chest, negative for PE, bilateral perihilar ground glass and nodular opacities suggestive of an infectious process noted. ASSESSMENT AND PLAN: Impression: A 51-year-old woman with about 3-1/2 weeks of deep cough, congestion, and fatigue, now with diarrhea. Symptoms are most consistent with COVID-19. The patient is in full isolation while we are awaiting PCR test through [facility]. Her symptoms have been out over 3 weeks and she is not eligible for any COVID directed therapeutics here other than steroids for her bronchospasm. She is agreeable to trying a short course of methylprednisolone here. We will need to be sure to keep her moving. She will need Lovenox or heparin for DVT prophylaxis. She is on broad-spectrum empiric antibiotics and cough suppressants. We appreciate input from Pulmonary organizational effectiveness consultant. The patient is a full code. Inpatient status is most appropriate as we anticipate a length of stay of 2-3 midnights while we work this through. The patient is a FULL CODE. REMIGIO DR: Tamiko TID: [id number] CC: MYRIAM MEJIA MD MTDD
[2021-07-15 15:00] VITALS: BP 119/74
[2021-07-15] MEDS: BENZONATATE 100 MG CAPSULE. PO SCH ×2 (15:00→22:17)
[2021-07-15] MEDS: CYCLOBENZAPRINE 10 MG TABLET. PO SCH ×2 (15:00→22:16)
[2021-07-15] MEDS: HYDROcodone/APAP 7.5/325MG 1 TAB TABLET PO PRN (15:01)
[2021-07-15] MEDS: HEPARIN for SUB-Q USE 5,000 UNIT/ML VIAL. SQ SCH ×2 (15:20→22:20)
[2021-07-15 20:15] VITALS: BP 114/77
[2021-07-15] MEDS ORDERED: FLU VACC QUAD 21-22 (6MOS+) PF 0.5 ML SYRINGE. VAX IM ONE (20:45)
[2021-07-15] MEDS: guaiFENesin/CODEINE 100mg/10mg 5 ML LIQUID PO PRN (22:16)
[2021-07-15] MEDS: methylPREDNISolone SOD SUCC PF 40 MG/ML VIAL. IV SCH (22:16)
[2021-07-15 23:33] VITALS: BP 123/85
[2021-07-16 03:50] VITALS: BP 126/83
--- NOTE | 2021-07-16 04:57 | CONS ---
DATE OF CONSULTATION: 07/15/2021 ATTENDING PHYSICIAN: Steven Mejia MD. REASON FOR CONSULTATION: The patient is seen in pulmonary consultation at the request of Dr. Mejia for acute hypoxemic respiratory failure, abnormal CT chest. HISTORY OF PRESENT ILLNESS: The patient is a 51-year-old with possible underlying COPD, unknown FEV1, continues to smoke. She has been ill now for approximately a month. She went to the urgent care center several weeks ago, was treated for upper respiratory tract infection with doxycycline. She also had UTI at that time. The patient continues to feel poorly. She has a cough, mostly nonproductive and wheezing. No paroxysmal nocturnal dyspnea or pedal edema. She presented to the Emergency Room. She underwent a CT angiogram, which I personally reviewed. There is no evidence of pulmonary embolism. There are some perihilar infiltrates and some ground glass opacities. According to the patient, she has been tested on several occasions for SARS-CoV-2 and tested negative. Yesterday, she came in and had a rapid test, which was negative. White count was normal. Electrolytes were noted. She is currently receiving IV antibiotics. I was asked to see her in consultation for further evaluation and management. PAST MEDICAL HISTORY: 1. Tobacco dependent, COPD, unknown FEV1. 2. Depression. 3. Migraine headaches. 4. Obstructive sleep apnea. PAST SURGICAL HISTORY: Status post cholecystectomy, breast biopsy, which was negative. She has had uterine ablation. SOCIAL HISTORY: She continues to smoke. FAMILY HISTORY: No family history of lung cancer. There is family history of breast cancer. No one had COVID recently. REVIEW OF SYSTEMS: CONSTITUTIONAL: Fever, chills. She had a temperature at home of 100.7. HEENT: Some nasal congestion. No sore throat. RESPIRATORY: As indicated above. In addition, she had mild hemoptysis yesterday. CARDIOVASCULAR: No chest pain or pressure. GASTROINTESTINAL: No nausea, vomiting or diarrhea. GENITOURINARY: No dysuria or frequency. MUSCULOSKELETAL: She has got chronic myalgias and back pain. SKIN: No new skin rashes. NEUROLOGIC: No headaches, diplopia or blurred vision. PSYCHIATRIC: She has a prior history of depression and anxiety. CURRENT MEDICATIONS: List was reviewed. ALLERGIES: CEPHALEXIN, DULOXETINE, AND PREDNISONE. PHYSICAL EXAMINATION: GENERAL: Since admission, she has been afebrile. She is currently on 2 liters of oxygen supplementation. She appeared to be in no respiratory distress. HEENT: Eyes: The sclerae were nonicteric. NECK: Jugular venous distention was not elevated. No lymphadenopathy. CHEST: Full expansion. LUNGS: She had some expiratory wheeze, prolonged expiratory phase with some scattered rhonchi. CARDIOVASCULAR: Regular rate and rhythm with S1, S2, no S3. ABDOMEN: Soft, obese. EXTREMITIES: No clubbing or cyanosis. No pitting edema. NEUROLOGIC: The patient was awake, alert, following commands. A detailed neuro exam was not performed. LABORATORY DATA: Reviewed. White count was normal. She had elevated monocytes. Electrolytes were noted. Albumin was 2.9. Serology for SARS-CoV-2 rapid test was negative. Influenza was negative. IMPRESSION: 1. Acute hypoxemic respiratory failure, multifactorial. 2. Abnormal CT chest revealing bilateral ground glass opacities and infiltrates. 3. Suspect bacterial pneumonia, gram-positive, gram-negative. 4. Acute exacerbation of chronic obstructive pulmonary disease. 5. Repeat SARS-CoV-2 PCR ____. 6. Multiple other comorbidities including depression, migraine headache, chronic pain. 7. Tobacco dependence. 8. Fever. PLAN: 1. Continue empiric antibiotics. 2. Continue oxygen supplementation. 3. Repeat SARS-CoV-2 testing. 4. The patient instructed on the importance of discontinued tobacco. 5. Repeat CT chest in 2 months. 6. Outpatient PFTs. 7. The patient currently on Rocephin and azithromycin. 8. Robitussin with codeine. 9. DVT prophylaxis. I do appreciate the privilege in sharing in the patient's care. ADRIANNE/ANALISA DR: Ayana TID: [id number]
[2021-07-16] MEDS: HEPARIN for SUB-Q USE 5,000 UNIT/ML VIAL. SQ SCH ×3 (05:38→21:43)
[2021-07-16] MEDS: guaiFENesin/CODEINE 100mg/10mg 5 ML LIQUID PO PRN (05:40)
[2021-07-16] MEDS: AZITHROMYCIN 500 MG in IV NORMAL SALINE 250ML 250 ML IV SCH (05:55)
[2021-07-16 07:00] VITALS: BP 105/71
[2021-07-16 07:55] LABS: BASO % 1 % (0-3); EOS % 0 % (0-3); HEMATOCRIT 45.9 % (36.0-47.0); LYMPH # 0.7 x10^3/uL (1.0-4.8); LYMPH % 21 % (24-48); MEAN CORPUSCULAR HEMOGLOBIN 33 pg (25-35); MEAN CORPUSCULAR HGB CONC 33 g/dL (31-37); MEAN CORPUSCULAR VOLUME 100 fL (79-100); MONO # 0.2 x10^3/uL (0.0-1.1); MONO % 6 % (0-9); NEUT # 2.5 x10^3/uL (1.8-7.7); NEUT % 73 % (31-73); PLATELET COUNT 174 x10^3/uL (140-400); RED CELL DISTRIBUTION WIDTH 14.2 % (11.5-14.5); WHITE BLOOD COUNT 3.5 x10^3/uL (4.0-11.0)
[2021-07-16 08:41] LABS: ALBUMIN 2.7 g/dL (3.4-5.0); ALBUMIN/GLOBULIN RATIO 0.6 (1.0-1.7); CALCIUM 8.5 mg/dL (8.5-10.1); CREATININE 0.6 mg/dL (0.6-1.0); GFR 105.4; POTASSIUM 4.2 mmol/L (3.5-5.1); TOTAL BILIRUBIN 0.3 mg/dL (0.2-1.0); TOTAL PROTEIN 7.4 g/dL (6.4-8.2)
--- NOTE | 2021-07-16 09:03 | PDOC ---
PULMONARY PROGRESS NOTES DATE: 07/16/21 TIME: 08:52 Subjective Sitting up in bed, eating breakfast this morning, reports feeling better than yesterday, currently on 3L NC Patient states she uses CPAP at home, did not bring with her, discussed with staff. Vitals Vital Signs Date Time Temp Pulse Resp B/P (MAP) Pulse Ox O2 Delivery O2 Flow Rate FiO2 07/16/21 07:00 97.8 84 20 105/71 (82) 95 Nasal Cannula 2.0 97.8 ROS: No Nausea, No Chest Pain, No Increase Cough General: Alert, Oriented X4 Lungs: Wheezing Abdomen: Soft, Non-tender Neuro Exam: Alert Extremities: No Edema Skin: Warm, No Rashes Labs Laboratory Tests Test 07/15/21 02:10 07/16/21 07:10 White Blood Count 4.3 x10^3/uL (4.0-11.0) 3.5 x10^3/uL (4.0-11.0) Red Blood Count 5.09 x10^6/uL (3.50-5.40) 4.60 x10^6/uL (3.50-5.40) Hemoglobin 16.6 g/dL (12.0-15.5) 15.0 g/dL (12.0-15.5) Hematocrit 50.6 % (36.0-47.0) 45.9 % (36.0-47.0) Mean Corpuscular Volume 100 fL (79-100) 100 fL (79-100) Mean Corpuscular Hemoglobin 33 pg (25-35) 33 pg (25-35) Mean Corpuscular Hemoglobin Concent 33 g/dL (31-37) 33 g/dL (31-37) Red Cell Distribution Width 14.3 % (11.5-14.5) 14.2 % (11.5-14.5) Platelet Count 185 x10^3/uL (140-400) 174 x10^3/uL (140-400) Neutrophils (%) (Auto) 42 % (31-73) 73 % (31-73) Lymphocytes (%) (Auto) 43 % (24-48) 21 % (24-48) Monocytes (%) (Auto) 11 % (0-9) 6 % (0-9) Eosinophils (%) (Auto) 2 % (0-3) 0 % (0-3) Basophils (%) (Auto) 1 % (0-3) 1 % (0-3) Neutrophils # (Auto) 1.8 x10^3/uL (1.8-7.7) 2.5 x10^3/uL (1.8-7.7) Lymphocytes # (Auto) 1.9 x10^3/uL (1.0-4.8) 0.7 x10^3/uL (1.0-4.8) Monocytes # (Auto) 0.5 x10^3/uL (0.0-1.1) 0.2 x10^3/uL (0.0-1.1) Eosinophils # (Auto) 0.1 x10^3/uL (0.0-0.7) 0.0 x10^3/uL (0.0-0.7) Basophils # (Auto) 0.0 x10^3/uL (0.0-0.2) 0.0 x10^3/uL (0.0-0.2) Sodium Level 146 mmol/L (136-145) 147 mmol/L (136-145) Potassium Level 3.7 mmol/L (3.5-5.1) 4.2 mmol/L (3.5-5.1) Chloride Level 105 mmol/L (98-107) 109 mmol/L (98-107) Carbon Dioxide Level 32 mmol/L (21-32) 30 mmol/L (21-32) Anion Gap 9 (6-14) 8 (6-14) Blood Urea Nitrogen 6 mg/dL (7-20) 6 mg/dL (7-20) Creatinine 0.8 mg/dL (0.6-1.0) 0.6 mg/dL (0.6-1.0) Estimated GFR (Cockcroft-Gault) 75.6 105.4 BUN/Creatinine Ratio 8 (6-20) 10 (6-20) Glucose Level 104 mg/dL (70-99) 174 mg/dL (70-99) Lactic Acid Level 1.6 mmol/L (0.4-2.0) Calcium Level 8.9 mg/dL (8.5-10.1) 8.5 mg/dL (8.5-10.1) Magnesium Level 2.0 mg/dL (1.8-2.4) Total Bilirubin 0.3 mg/dL (0.2-1.0) 0.3 mg/dL (0.2-1.0) Aspartate Amino Transf (AST/SGOT) 60 U/L (15-37) 37 U/L (15-37) Alanine Aminotransferase (ALT/SGPT) 85 U/L (14-59) 62 U/L (14-59) Alkaline Phosphatase 107 U/L (46-116) 88 U/L (46-116) Troponin I High Sensitivity 15 ng/L (4-50) NH-Nro-W-Type Natriuretic Peptide 181 pg/mL (0-124) Total Protein 7.9 g/dL (6.4-8.2) 7.4 g/dL (6.4-8.2) Albumin 2.9 g/dL (3.4-5.0) 2.7 g/dL (3.4-5.0) Albumin/Globulin Ratio 0.6 (1.0-1.7) 0.6 (1.0-1.7) Coronavirus (COVID-19)(PCR) Not detected (NOT DETECTD) Influenza Type A Antigen Negative (NEGATIVE) Influenza Type B Antigen Negative (NEGATIVE) SARS-CoV-2 Antigen (Rapid) Negative (NEGATIVE) Laboratory Tests Test 07/16/21 07:10 White Blood Count 3.5 x10^3/uL (4.0-11.0) Red Blood Count 4.60 x10^6/uL (3.50-5.40) Hemoglobin 15.0 g/dL (12.0-15.5) Hematocrit 45.9 % (36.0-47.0) Mean Corpuscular Volume 100 fL (79-100) Mean Corpuscular Hemoglobin 33 pg (25-35) Mean Corpuscular Hemoglobin Concent 33 g/dL (31-37) Red Cell Distribution Width 14.2 % (11.5-14.5) Platelet Count 174 x10^3/uL (140-400) Neutrophils (%) (Auto) 73 % (31-73) Lymphocytes (%) (Auto) 21 % (24-48) Monocytes (%) (Auto) 6 % (0-9) Eosinophils (%) (Auto) 0 % (0-3) Basophils (%) (Auto) 1 % (0-3) Neutrophils # (Auto) 2.5 x10^3/uL (1.8-7.7) Lymphocytes # (Auto) 0.7 x10^3/uL (1.0-4.8) Monocytes # (Auto) 0.2 x10^3/uL (0.0-1.1) Eosinophils # (Auto) 0.0 x10^3/uL (0.0-0.7) Basophils # (Auto) 0.0 x10^3/uL (0.0-0.2) Sodium Level 147 mmol/L (136-145) Potassium Level 4.2 mmol/L (3.5-5.1) Chloride Level 109 mmol/L (98-107) Carbon Dioxide Level 30 mmol/L (21-32) Anion Gap 8 (6-14) Blood Urea Nitrogen 6 mg/dL (7-20) Creatinine 0.6 mg/dL (0.6-1.0) Estimated GFR (Cockcroft-Gault) 105.4 BUN/Creatinine Ratio 10 (6-20) Glucose Level 174 mg/dL (70-99) Calcium Level 8.5 mg/dL (8.5-10.1) Total Bilirubin 0.3 mg/dL (0.2-1.0) Aspartate Amino Transf (AST/SGOT) 37 U/L (15-37) Alanine Aminotransferase (ALT/SGPT) 62 U/L (14-59) Alkaline Phosphatase 88 U/L (46-116) Total Protein 7.4 g/dL (6.4-8.2) Albumin 2.7 g/dL (3.4-5.0) Albumin/Globulin Ratio 0.6 (1.0-1.7) Medications Active Scripts Medications Dose Route/Sig Max Daily Dose Days Date Category Cyclobenzaprine Hcl 10 Mg Tablet 1 Tab PO TID 07/15/21 Reported Multivitamins (Multivitamin) 1 Each Tablet 1 Tab PO DAILY 08/06/17 Reported Valium (Diazepam) 10 Mg Tablet 10 Mg PO QID PRN 07/23/17 Reported Hydrocodone-Apap 7.5-325 (Hydrocodone Bit/Acetaminophen) 1 Each Tablet 1 Tab PO PRN Q6HRS PRN 07/23/17 Reported Tylenol (Acetaminophen) 325 Mg Tablet 325 Mg PO PRN Q4HRS PRN 10/08/13 Reported Ibuprofen 800 Mg Tablet 800 Mg PO PRN Q8HRS PRN 10/08/13 Reported Comments 07/15 Chest X-Ray IMPRESSION: 1. Elevation of the right hemidiaphragm with mild right basilar opacities, probably subsegmental atelectasis although a superimposed infection is not entirely excluded. 07/15 Chest CTA IMPRESSION: 1. No evidence of pulmonary thromboembolic disease. 2. Bilateral perihilar groundglass and nodular opacities, probably an infectious/inflammatory process. Impression . 1. Acute hypoxemic respiratory failure, multifactorial. 2. Abnormal CT chest revealing bilateral ground glass opacities and infiltrates. 3. Suspect bacterial pneumonia, gram-positive, gram-negative. 4. Acute exacerbation of chronic obstructive pulmonary disease. 5. Repeat SARS-CoV-2 PCR NEGATIVE 6. Multiple other comorbidities including depression, migraine headache, chronic pain. 7. Tobacco dependence. 8. Fever. Plan . PLAN: Continue Ceftriaxone and Azithromycin Continue oxygen supplementation; currently 3L NC Titrate O2 as tolerated DVT prophylaxis. Heparin SQ CPAP at night; discussed with staff Labs Reviewed. 07/15 PLAN: 1. Continue empiric antibiotics. 2. Continue oxygen supplementation. 3. Repeat SARS-CoV-2 testing. 4. The patient instructed on the importance of discontinued tobacco. 5. Repeat CT chest in 2 months. 6. Outpatient PFTs. 7. The patient currently on Rocephin and azithromycin. 8. Robitussin with codeine. 9. DVT prophylaxis. I do appreciate the privilege in sharing in the patient's care. IAIN SLATER MD Jul 16, 2021 09:03
[2021-07-16 11:00] VITALS: BP 91/57
[2021-07-16] MEDS: methylPREDNISolone SOD SUCC PF 40 MG/ML VIAL. IV SCH ×2 (11:19→21:41)
[2021-07-16] MEDS: CYCLOBENZAPRINE 10 MG TABLET. PO SCH ×3 (11:20→21:41)
[2021-07-16] MEDS: cefTRIAXone IV Push 1 GM VIAL. IVP SCH (11:20)
[2021-07-16] MEDS: BENZONATATE 100 MG CAPSULE. PO SCH ×3 (11:20→21:46)
--- NOTE | 2021-07-16 11:54 | NUR ---
SW following. Discussed with RN, pt from home, 2L (does not use oxygen at home, but does have a CPAP at home), cardiac diet, Flu and COVID-19 negative. Pulmonology following. RN advised no SW needs at this time. SW will continue to follow.
--- NOTE | 2021-07-16 11:58 | PDOC ---
[employer] PROGRESS NOTE Date of Service DOS: DATE: 07/16/21 TIME: 11:57 Chief Complaint Chief Complaint Acute hypoxemic respiratory failure - likely COPD exacerbation, will treat as such Abnormal CT chest - bilateral ground glass opacities and infiltrates. COVID 19 negative so far Pneumonia - likely bacterial pneumonia, gram-positive, gram-negative. Acute exacerbation of chronic obstructive pulmonary disease. Depression Migraine headache Chronic pain. Muscular dystrophy Diarrhea Tobacco dependence. Fever - monitor History of Present Illness History of Present Illness Ms Longo is a 51-year-old female with PMHx muscular dystrophy, obesity, smoker with chronic bronchitis who comes to ED c/o worsening cough, congestion and shortness of breath. Sees the Neuromuscular Clinic at [facility]. The patient has had deep cough and congestion for the last 3-1/2 weeks. She says that her and 2 adult children who live with her have been fine. She went to Urgent Care a couple of weeks ago and was treated with a 5-day course of doxycycline. She has not been able to tolerate Medrol Dosepak in the past. She is not sure about other steroids. She says that when she takes steroid, her legs become weaker. She has muscular dystrophy that was diagnosed about 3 years ago when her grandson was diagnosed at 5 years old. She and her family all follow with the Neuromuscular Clinic at [facility]. She is on disability from this. She has had some watery diarrhea over the last few days, but notes she has a large BM every 4 days then 3 days of watery stools, no foul smell, no history of c. diff. She denies any nausea, vomiting, or abdominal pain. 07/16: Still hypoxic still with cough shortness of breath. Some loose stools asking for Imodium. No foul smell in her stool. Having some nausea today. She is actively trying to quit smoking scatter prescription for Chantix at home Vitals/I&O Vitals/I&O: Vital Signs Date Time Temp Pulse Resp B/P (MAP) Pulse Ox O2 Delivery O2 Flow Rate FiO2 07/16/21 07:00 97.8 84 20 105/71 (82) 95 Nasal Cannula 2.0 97.8 I & O 07/15/21 07/15/21 07/16/21 15:00 23:00 07:00 Intake Total 1000 ml 300 ml Output Total 500 ml Balance 1000 ml -200 ml Physical Exam General: Alert, Oriented X3, Cooperative, moderate distress Heart: Regular rate Lungs: Wheezing Labs Labs: Laboratory Tests Test 07/16/21 07:10 White Blood Count 3.5 x10^3/uL (4.0-11.0) Red Blood Count 4.60 x10^6/uL (3.50-5.40) Hemoglobin 15.0 g/dL (12.0-15.5) Hematocrit 45.9 % (36.0-47.0) Mean Corpuscular Volume 100 fL (79-100) Mean Corpuscular Hemoglobin 33 pg (25-35) Mean Corpuscular Hemoglobin Concent 33 g/dL (31-37) Red Cell Distribution Width 14.2 % (11.5-14.5) Platelet Count 174 x10^3/uL (140-400) Neutrophils (%) (Auto) 73 % (31-73) Lymphocytes (%) (Auto) 21 % (24-48) Monocytes (%) (Auto) 6 % (0-9) Eosinophils (%) (Auto) 0 % (0-3) Basophils (%) (Auto) 1 % (0-3) Neutrophils # (Auto) 2.5 x10^3/uL (1.8-7.7) Lymphocytes # (Auto) 0.7 x10^3/uL (1.0-4.8) Monocytes # (Auto) 0.2 x10^3/uL (0.0-1.1) Eosinophils # (Auto) 0.0 x10^3/uL (0.0-0.7) Basophils # (Auto) 0.0 x10^3/uL (0.0-0.2) Sodium Level 147 mmol/L (136-145) Potassium Level 4.2 mmol/L (3.5-5.1) Chloride Level 109 mmol/L (98-107) Carbon Dioxide Level 30 mmol/L (21-32) Anion Gap 8 (6-14) Blood Urea Nitrogen 6 mg/dL (7-20) Creatinine 0.6 mg/dL (0.6-1.0) Estimated GFR (Cockcroft-Gault) 105.4 BUN/Creatinine Ratio 10 (6-20) Glucose Level 174 mg/dL (70-99) Calcium Level 8.5 mg/dL (8.5-10.1) Total Bilirubin 0.3 mg/dL (0.2-1.0) Aspartate Amino Transf (AST/SGOT) 37 U/L (15-37) Alanine Aminotransferase (ALT/SGPT) 62 U/L (14-59) Alkaline Phosphatase 88 U/L (46-116) Total Protein 7.4 g/dL (6.4-8.2) Albumin 2.7 g/dL (3.4-5.0) Albumin/Globulin Ratio 0.6 (1.0-1.7) Assessment and Plan Assessmemt and Plan Problems Medical Problems: (1) Bronchospasm Status: Acute (2) Community acquired pneumonia Status: Acute (3) Respiratory failure with hypoxia Status: Acute (4) Tobacco use Status: Acute Comment Review of Relevant I have reviewed the following items ade (where applicable) has been applied. Medications: Current Medications Medications (Trade) Dose Ordered Sig/Mirza Route PRN Reason Start Time Stop Time Status Last Admin Dose Admin Heparin Sodium (Porcine) (Heparin Sodium) 5,000 unit Q8HRS SQ 07/15/21 14:00 07/16/21 05:38 Cyclobenzaprine HCl (Flexeril) 10 mg TID PO 07/15/21 14:00 07/16/21 11:20 Acetaminophen/ Hydrocodone Bitart (Lortab 7.5/325) 1 tab PRN Q6HRS PRN PO PAIN 07/15/21 12:45 07/15/21 15:01 Benzonatate (Tessalon Perle) 100 mg IHC124 PO 07/15/21 14:00 07/16/21 11:20 Methylprednisolone Sodium Succinate (SOLU-Medrol 40MG VIAL) 40 mg Q12HR IV 07/15/21 21:00 07/16/21 11:19 Azithromycin 500 mg/Sodium Chloride 250 ml @ 250 mls/hr Q24H IV 07/16/21 06:00 07/16/21 05:55 Ceftriaxone Sodium (Rocephin) 1 gm Q24H IVP 07/16/21 07:00 07/16/21 11:20 Justifications for Admission Other Justification TATO HURST MD Jul 16, 2021 11:58
[2021-07-16] MEDS ORDERED: LOPERAMIDE 2 MG CAPSULE PO PRN (12:45)
[2021-07-16] MEDS ORDERED: ONDANSETRON PF 4 MG/2 ML VIAL. IVP PRN (12:45)
[2021-07-16 15:00] VITALS: BP 105/67
[2021-07-16] MEDS: HYDROcodone/APAP 7.5/325MG 1 TAB TABLET PO PRN (16:58)
[2021-07-16 19:00] VITALS: BP 83/61
[2021-07-16] MEDS: LACTOBACILLUS RHAMNOSUS GG 1 CAPSULE. PO SCH ×2 (21:00→21:41)
[2021-07-16] MEDS: PSYLLIUM HUSK (SUGAR FREE) 1 PKT PACKET PO SCH (21:00)
[2021-07-16 23:00] VITALS: BP 95/57
[2021-07-16] MEDS ORDERED: IPRATRPIUM/ALBUTEROL 0.5/2.5MG 3 ML NEBU. NEB ONE (23:00)
[2021-07-17 03:00] VITALS: BP 94/62
[2021-07-17] MEDS: AZITHROMYCIN 500 MG in IV NORMAL SALINE 250ML 250 ML IV SCH (06:05)
[2021-07-17] MEDS: cefTRIAXone IV Push 1 GM VIAL. IVP SCH (06:05)
[2021-07-17] MEDS: HEPARIN for SUB-Q USE 5,000 UNIT/ML VIAL. SQ SCH ×3 (06:06→21:55)
[2021-07-17 07:00] VITALS: BP 81/59
[2021-07-17] MEDS: IPRATRPIUM/ALBUTEROL 0.5/2.5MG 3 ML NEBU. NEB SCH ×4 (07:34→21:01)
--- NOTE | 2021-07-17 08:55 | PDOC ---
PULMONARY PROGRESS NOTES DATE: 07/17/21 TIME: 08:50 Subjective Patient sitting up in bed this morning, reported chest pressure last night, breathing treatments ordered QID with relief for symptoms,feeling a little bit better, denies new cough, reports shortness of breath at times. CPAP ordered for patient as she uses one at home. No other concerns Vitals Vital Signs Date Time Temp Pulse Resp B/P (MAP) Pulse Ox O2 Delivery O2 Flow Rate FiO2 07/17/21 07:35 96 Nasal Cannula 2.0 07/17/21 07:00 98.7 90 20 81/59 (66) 98.7 ROS: No Nausea, No Chest Pain, No Increase Cough General: Alert, Oriented X4 Lungs: Wheezing Abdomen: Soft, Non-tender Neuro Exam: Alert Extremities: No Edema Skin: Warm, No Rashes Labs Laboratory Tests Test 07/16/21 07:10 White Blood Count 3.5 x10^3/uL (4.0-11.0) Red Blood Count 4.60 x10^6/uL (3.50-5.40) Hemoglobin 15.0 g/dL (12.0-15.5) Hematocrit 45.9 % (36.0-47.0) Mean Corpuscular Volume 100 fL (79-100) Mean Corpuscular Hemoglobin 33 pg (25-35) Mean Corpuscular Hemoglobin Concent 33 g/dL (31-37) Red Cell Distribution Width 14.2 % (11.5-14.5) Platelet Count 174 x10^3/uL (140-400) Neutrophils (%) (Auto) 73 % (31-73) Lymphocytes (%) (Auto) 21 % (24-48) Monocytes (%) (Auto) 6 % (0-9) Eosinophils (%) (Auto) 0 % (0-3) Basophils (%) (Auto) 1 % (0-3) Neutrophils # (Auto) 2.5 x10^3/uL (1.8-7.7) Lymphocytes # (Auto) 0.7 x10^3/uL (1.0-4.8) Monocytes # (Auto) 0.2 x10^3/uL (0.0-1.1) Eosinophils # (Auto) 0.0 x10^3/uL (0.0-0.7) Basophils # (Auto) 0.0 x10^3/uL (0.0-0.2) Sodium Level 147 mmol/L (136-145) Potassium Level 4.2 mmol/L (3.5-5.1) Chloride Level 109 mmol/L (98-107) Carbon Dioxide Level 30 mmol/L (21-32) Anion Gap 8 (6-14) Blood Urea Nitrogen 6 mg/dL (7-20) Creatinine 0.6 mg/dL (0.6-1.0) Estimated GFR (Cockcroft-Gault) 105.4 BUN/Creatinine Ratio 10 (6-20) Glucose Level 174 mg/dL (70-99) Calcium Level 8.5 mg/dL (8.5-10.1) Total Bilirubin 0.3 mg/dL (0.2-1.0) Aspartate Amino Transf (AST/SGOT) 37 U/L (15-37) Alanine Aminotransferase (ALT/SGPT) 62 U/L (14-59) Alkaline Phosphatase 88 U/L (46-116) Total Protein 7.4 g/dL (6.4-8.2) Albumin 2.7 g/dL (3.4-5.0) Albumin/Globulin Ratio 0.6 (1.0-1.7) Medications Active Scripts Medications Dose Route/Sig Max Daily Dose Days Date Category Cyclobenzaprine Hcl 10 Mg Tablet 1 Tab PO TID 07/15/21 Reported Multivitamins (Multivitamin) 1 Each Tablet 1 Tab PO DAILY 08/06/17 Reported Valium (Diazepam) 10 Mg Tablet 10 Mg PO QID PRN 07/23/17 Reported Hydrocodone-Apap 7.5-325 (Hydrocodone Bit/Acetaminophen) 1 Each Tablet 1 Tab PO PRN Q6HRS PRN 07/23/17 Reported Tylenol (Acetaminophen) 325 Mg Tablet 325 Mg PO PRN Q4HRS PRN 10/08/13 Reported Ibuprofen 800 Mg Tablet 800 Mg PO PRN Q8HRS PRN 10/08/13 Reported Comments 07/15 Chest X-Ray IMPRESSION: 1. Elevation of the right hemidiaphragm with mild right basilar opacities, prob ably subsegmental atelectasis although a superimposed infection is not entirely excluded. 07/15 Chest CTA IMPRESSION: 1. No evidence of pulmonary thromboembolic disease. 2. Bilateral perihilar groundglass and nodular opacities, probably an infectious/inflammatory process. Impression . 1. Acute hypoxemic respiratory failure, multifactorial. 2. Abnormal CT chest revealing bilateral ground glass opacities and infiltrates. 3. Suspect bacterial pneumonia, gram-positive, gram-negative. 4. Acute exacerbation of chronic obstructive pulmonary disease. 5. Repeat SARS-CoV-2 PCR NEGATIVE 6. Multiple other comorbidities including depression, migraine headache, chronic pain. 7. Tobacco dependence. 8. Fever. Plan . Updated 07/17 Continue empiric antibiotics Continue oxygen supplementation, continues on 3L NC CPAP at night, order placed DVT prophylaxis Microbiology - Blood Cultures X2 showed no growth PLAN: Continue Ceftriaxone and Azithromycin Continue oxygen supplementation; currently 3L NC Titrate O2 as tolerated DVT prophylaxis. Heparin SQ CPAP at night; discussed with staff Labs Reviewed. 07/15 PLAN: 1. Continue empiric antibiotics. 2. Continue oxygen supplementation. 3. Repeat SARS-CoV-2 testing. 4. The patient instructed on the importance of discontinued tobacco. 5. Repeat CT chest in 2 months. 6. Outpatient PFTs. 7. The patient currently on Rocephin and azithromycin. 8. Robitussin with codeine. 9. DVT prophylaxis. I do appreciate the privilege in sharing in the patient's care. IAIN SLATER MD Jul 17, 2021 08:55
[2021-07-17] MEDS: LACTOBACILLUS RHAMNOSUS GG 1 CAPSULE. PO SCH ×2 (09:20→21:53)
[2021-07-17] MEDS: CYCLOBENZAPRINE 10 MG TABLET. PO SCH ×3 (09:20→21:54)
[2021-07-17] MEDS: BENZONATATE 100 MG CAPSULE. PO SCH ×3 (09:21→21:53)
[2021-07-17] MEDS: methylPREDNISolone SOD SUCC PF 40 MG/ML VIAL. IV SCH ×2 (09:21→21:54)
[2021-07-17] MEDS: HYDROcodone/APAP 7.5/325MG 1 TAB TABLET PO PRN ×2 (09:22→18:05)
--- NOTE | 2021-07-17 10:52 | PDOC ---
[employer] PROGRESS NOTE Date of Service DOS: DATE: 07/17/21 TIME: 10:50 Chief Complaint Chief Complaint Acute hypoxemic respiratory failure - likely COPD exacerbation, will treat as such Abnormal CT chest - bilateral ground glass opacities and infiltrates. COVID 19 negative so far Pneumonia - likely bacterial pneumonia, gram-positive, gram-negative. Acute exacerbation of chronic obstructive pulmonary disease. Depression Migraine headache Chronic pain. Muscular dystrophy Diarrhea Tobacco dependence. Fever - monitor GURINDER - did not bring her CPAP History of Present Illness History of Present Illness Ms Longo is a 51-year-old female with PMHx muscular dystrophy, obesity, smoker with chronic bronchitis who comes to ED c/o worsening cough, congestion and shortness of breath. Sees the Neuromuscular Clinic at [facility]. The patient has had deep cough and congestion for the last 3-1/2 weeks. She says that her and 2 adult children who live with her have been fine. She went to Urgent Care a couple of weeks ago and was treated with a 5-day course of doxycycline. She has not been able to tolerate Medrol Dosepak in the past. She is not sure about other steroids. She says that when she takes steroid, her legs become weaker. She has muscular dystrophy that was diagnosed about 3 years ago when her grandson was diagnosed at 5 years old. She and her family all follow with the Neuromuscular Clinic at [facility]. She is on disability from this. She has had some watery diarrhea over the last few days, but notes she has a large BM every 4 days then 3 days of watery stools, no foul smell, no history of c. diff. She denies any nausea, vomiting, or abdominal pain. 07/16: Still hypoxic still with cough shortness of breath. Some loose stools asking for Imodium. No foul smell in her stool. Having some nausea today. She is actively trying to quit smoking scatter prescription for Chantix at home 07/17: Feels her wheezing improved with the last breathing treatment. Blood pressure on the low side this morning. Became dyspneic when she took her self off O2 to walk to the bathroom saturations dropped to 84%. She is asking what the discharge plan is. Does not have her CPAP. Vitals/I&O Vitals/I&O: Vital Signs Date Time Temp Pulse Resp B/P (MAP) Pulse Ox O2 Delivery O2 Flow Rate FiO2 07/17/21 09:50 18 Room Air 07/17/21 09:22 2.0 07/17/21 07:35 96 07/17/21 07:00 98.7 90 81/59 (66) 98.7 I & O 07/16/21 07/16/21 07/17/21 15:00 23:00 07:00 Intake Total 500 ml 850 ml Balance 500 ml 850 ml Physical Exam General: Alert, Oriented X3, Cooperative, moderate distress Heart: Regular rate Lungs: Wheezing Assessment and Plan Assessmemt and Plan Problems Medical Problems: (1) Bronchospasm Status: Acute (2) Community acquired pneumonia Status: Acute (3) Respiratory failure with hypoxia Status: Acute (4) Tobacco use Status: Acute Comment Review of Relevant I have reviewed the following items ade (where applicable) has been applied. Medications: Current Medications Medications (Trade) Dose Ordered Sig/Mirza Route PRN Reason Start Time Stop Time Status Last Admin Dose Admin Ondansetron HCl (Zofran) 4 mg PRN Q4HRS PRN IVP NAUSEA/VOMITING 07/16/21 12:45 07/16/21 12:41 Loperamide HCl (Imodium) 2 mg PRN Q15MIN PRN PO DIARRHEA 07/16/21 12:45 07/16/21 12:41 Lactobacillus Rhamnosus (Culturelle) 1 cap BID PO 07/16/21 21:00 07/17/21 09:20 Albuterol/ Ipratropium (Duoneb) 3 ml RTQID NEB 07/17/21 08:00 07/17/21 07:34 Albuterol/ Ipratropium (Duoneb) 3 ml 1X ONCE NEB 07/16/21 23:00 07/16/21 23:01 DC 07/16/21 23:45 Justifications for Admission Other Justification TATO HURST MD Jul 17, 2021 10:52
[2021-07-17 11:00] VITALS: BP 82/59
[2021-07-17] MEDS ORDERED: ALBUMIN HUMAN 5% 250 ML IV ONE (13:30)
[2021-07-17 15:00] VITALS: BP 102/69
[2021-07-17 19:00] VITALS: BP 91/68
[2021-07-17] MEDS: PSYLLIUM HUSK (SUGAR FREE) 1 PKT PACKET PO SCH (20:22)
[2021-07-17 23:33] VITALS: BP 93/48
[2021-07-18] MEDS: IBUPROFEN 400 MG TABLET. PO PRN (01:33)
[2021-07-18] MEDS: HYDROcodone/APAP 7.5/325MG 1 TAB TABLET PO PRN ×3 (01:33→21:26)
[2021-07-18 03:00] VITALS: BP 109/68
[2021-07-18] MEDS: cefTRIAXone IV Push 1 GM VIAL. IVP SCH ×2 (05:05→21:26)
[2021-07-18] MEDS: HEPARIN for SUB-Q USE 5,000 UNIT/ML VIAL. SQ SCH ×3 (05:05→21:28)
[2021-07-18 07:00] VITALS: BP 113/71
[2021-07-18] MEDS: IPRATRPIUM/ALBUTEROL 0.5/2.5MG 3 ML NEBU. NEB SCH ×4 (07:15→20:45)
--- NOTE | 2021-07-18 08:24 | PDOC ---
PULMONARY PROGRESS NOTES DATE: 07/18/21 TIME: 08:24 Subjective Patient sitting up in bed this morning, reported chest pressure last night, breathing treatments ordered QID with relief for symptoms,feeling a little bit better, denies new cough, reports shortness of breath at times. CPAP ordered for patient as she uses one at home. No other concerns Vitals Vital Signs Date Time Temp Pulse Resp B/P (MAP) Pulse Ox O2 Delivery O2 Flow Rate FiO2 07/18/21 07:16 90 Nasal Cannula 2.0 07/18/21 07:00 97.7 75 31 113/71 (85) 97.7 ROS: No Nausea, No Chest Pain, No Increase Cough General: Alert, Oriented X4 Lungs: Wheezing Abdomen: Soft, Non-tender Neuro Exam: Alert Extremities: No Edema Skin: Warm, No Rashes Medications Active Scripts Medications Dose Route/Sig Max Daily Dose Days Date Category Cyclobenzaprine Hcl 10 Mg Tablet 1 Tab PO TID 07/15/21 Reported Multivitamins (Multivitamin) 1 Each Tablet 1 Tab PO DAILY 08/06/17 Reported Valium (Diazepam) 10 Mg Tablet 10 Mg PO QID PRN 07/23/17 Reported Hydrocodone-Apap 7.5-325 (Hydrocodone Bit/Acetaminophen) 1 Each Tablet 1 Tab PO PRN Q6HRS PRN 07/23/17 Reported Tylenol (Acetaminophen) 325 Mg Tablet 325 Mg PO PRN Q4HRS PRN 10/08/13 Reported Ibuprofen 800 Mg Tablet 800 Mg PO PRN Q8HRS PRN 10/08/13 Reported Comments 07/15 Chest X-Ray IMPRESSION: 1. Elevation of the right hemidiaphragm with mild right basilar opacities, probably subsegmental atelectasis although a superimposed infection is not entirely excluded. 07/15 Chest CTA IMPRESSION: 1. No evidence of pulmonary thromboembolic disease. 2. Bilateral perihilar groundglass and nodular opacities, probably an infectious/inflammatory process. Impression . 1. Acute hypoxemic respiratory failure, multifactorial. 2. Abnormal CT chest revealing bilateral ground glass opacities and infiltrates. 3. Suspect bacterial pneumonia, gram-positive, gram-negative. 4. Acute exacerbation of chronic obstructive pulmonary disease. 5. Repeat SARS-CoV-2 PCR NEGATIVE 6. Multiple other comorbidities including depression, migraine headache, chronic pain. 7. Tobacco dependence. 8. Fever. Plan . Updated 07/17 Continue empiric antibiotics Continue oxygen supplementation, continues on 3L NC CPAP at night, order placed DVT prophylaxis Microbiology - Blood Cultures X2 showed no growth PLAN: Continue Ceftriaxone and Azithromycin Continue oxygen supplementation; currently 3L NC Titrate O2 as tolerated DVT prophylaxis. Heparin SQ CPAP at night; discussed with staff Labs Reviewed. 07/15 PLAN: 1. Continue empiric antibiotics. 2. Continue oxygen supplementation. 3. Repeat SARS-CoV-2 testing. 4. The patient instructed on the importance of discontinued tobacco. 5. Repeat CT chest in 2 months. 6. Outpatient PFTs. 7. The patient currently on Rocephin and azithromycin. 8. Robitussin with codeine. 9. DVT prophylaxis. I do appreciate the privilege in sharing in the patient's care. IAIN SLATER MD Jul 18, 2021 08:24
[2021-07-18] MEDS: methylPREDNISolone SOD SUCC PF 40 MG/ML VIAL. IV SCH ×3 (09:06→21:25)
[2021-07-18] MEDS: LACTOBACILLUS RHAMNOSUS GG 1 CAPSULE. PO SCH ×2 (09:06→21:25)
[2021-07-18] MEDS: AZITHROMYCIN 250 MG TABLET. PO SCH (09:07)
[2021-07-18] MEDS: BENZONATATE 100 MG CAPSULE. PO SCH ×3 (09:07→21:26)
[2021-07-18] MEDS: CYCLOBENZAPRINE 10 MG TABLET. PO SCH ×3 (09:07→21:26)
--- NOTE | 2021-07-18 09:43 | PDOC ---
[employer] [facility] PROGRESS NOTE Date of Service DOS: DATE: 07/18/21 TIME: 09:43 Chief Complaint Chief Complaint Acute hypoxemic respiratory failure - likely COPD exacerbation, will treat as such Abnormal CT chest - bilateral ground glass opacities and infiltrates. COVID 19 negative so far Pneumonia - likely bacterial pneumonia, gram-positive, gram-negative. Acute exacerbation of chronic obstructive pulmonary disease. Depression Migraine headache Chronic pain. Muscular dystrophy Diarrhea Tobacco dependence. Fever - monitor GURINDER - did not bring her CPAP History of Present Illness History of Present Illness Ms Longo is a 51-year-old female with PMHx muscular dystrophy, obesity, smoker with chronic bronchitis who comes to ED c/o worsening cough, congestion and shortness of breath. Sees the Neurom[facility] Clinic at [facility]. The patient has had deep cough and congestion for the last 3-1/2 weeks. She says that her and 2 adult children who live with her have been fine. She went to Urgent Care a couple of weeks ago and was treated with a 5-day course of doxycycline. She has not been able to tolerate Medrol Dosepak in the past. She is not sure about other steroids. She says that when she takes steroid, her legs become weaker. She has muscular dystrophy that was diagnosed about 3 years ago when her grandson was diagnosed at 5 years old. She and her family all follow with the Neuromuscular Clinic at [facility]. She is on disability from this. She has had some watery diarrhea over the last few days, but notes she has a large BM every 4 days then 3 days of watery stools, no foul smell, no history of c. diff. She denies any nausea, vomiting, or abdominal pain. 07/16: Still hypoxic still with cough shortness of breath. Some loose stools asking for Imodium. No foul smell in her stool. Having some nausea today. She is actively trying to quit smoking scatter prescription for Chantix at home 07/17: Feels her wheezing improved with the last breathing treatment. Blood pressure on the low side this morning. Became dyspneic when she took her self off O2 to walk to the bathroom saturations dropped to 84%. She is asking what the discharge plan is. Does not have her CPAP. 07/18: brought her CPAP last night. Desaturates with minimal exertion. She feels even worse today cough is more violent. Having nausea now with. We will increase frequency of steroids and add Pulmicort nebs repeat chest x-ray Vitals/I&O Vitals/I&O: Vital Signs Date Time Temp Pulse Resp B/P (MAP) Pulse Ox O2 Delivery O2 Flow Rate FiO2 07/18/21 09:07 19 Nasal Cannula 2.0 07/18/21 07:16 90 07/18/21 07:00 97.7 75 113/71 (85) 97.7 I & O 07/17/21 07/17/21 07/18/21 15:00 23:00 07:00 Intake Total 200 ml 1150 ml Balance 200 ml 1150 ml Physical Exam General: Alert, Oriented X3, Cooperative, moderate distress Heart: Regular rate Lungs: Wheezing Assessment and Plan Assessmemt and Plan Problems Medical Problems: (1) Bronchospasm Status: Acute (2) Community acquired pneumonia Status: Acute (3) Respiratory failure with hypoxia Status: Acute (4) Tobacco use Status: Acute Comment Review of Relevant I have reviewed the following items ade (where applicable) has been applied. Medications: Current Medications Medications (Trade) Dose Ordered Sig/Mirza Route PRN Reason Start Time Stop Time Status Last Admin Dose Admin Azithromycin (Zithromax) 250 mg DAILY PO 07/18/21 09:00 07/21/21 08:59 07/18/21 09:07 Albumin Human 250 ml @ 62.5 mls/hr 1X ONCE IV 07/17/21 13:30 07/17/21 17:29 DC 07/17/21 14:07 Justifications for Admission Other Justification TATO HURST MD Jul 18, 2021 09:43
--- NOTE | 2021-07-18 10:48 | NUR ---
SW following. Discussed with RN, pt from home, 2L, cardiac diet. Uses CPAP at home. 6 minute walk ordered. COVID-19 negative. IV abx and IV steroids. SW will continue to follow.
[2021-07-18 11:00] VITALS: BP 120/72
[2021-07-18] MEDS: guaiFENesin DM 200MG/20MG 10 ML SYRUP PO PRN ×2 (11:01→17:46)
[2021-07-18] MEDS ORDERED: methylPREDNISolone SOD SUCC PF 40 MG/ML VIAL. IV SCH (11:15)
[2021-07-18] MEDS: BUDESONIDE 0.5 MG/2 ML NEBU. NEB SCH ×2 (11:25→20:45)
[2021-07-18 12:16] LABS: CALCIUM 9.1 mg/dL (8.5-10.1); CREATININE 0.8 mg/dL (0.6-1.0); GFR 75.6; MAGNESIUM 2.1 mg/dL (1.8-2.4); POTASSIUM 4.6 mmol/L (3.5-5.1)
--- NOTE | 2021-07-18 13:35 | RAD ---
EXAM: Chest, single view. HISTORY: Cough. Pneumonia. COMPARISON: 07/15/2021 FINDINGS: A frontal view of the chest obtained. There is elevation of the right hemidiaphragm and rig ht basilar atelectasis. There is lingular and right middle lobe infiltrate, characterized on a CT per formed 07/15/2021. There is also bilateral upper lobe interstitial opacity due to infiltrate. There is no pleural effusion or pneumothorax. The heart is normal in size. IMPRESSION: Bilateral multifocal pneumonia, better characterized on the recent CT. Electronically signed by: Caryn Silverio MD (07/18/2021 1:32 PM) [id number]
[2021-07-18 15:00] VITALS: BP 90/46
[2021-07-18 19:14] VITALS: BP 116/74
[2021-07-18] MEDS: PSYLLIUM HUSK (SUGAR FREE) 1 PKT PACKET PO SCH (21:00)
[2021-07-18 23:19] VITALS: BP 112/73
[2021-07-19 03:18] VITALS: BP 123/72
[2021-07-19] MEDS: methylPREDNISolone SOD SUCC PF 40 MG/ML VIAL. IV SCH ×3 (05:02→20:11)
[2021-07-19] MEDS: HYDROcodone/APAP 7.5/325MG 1 TAB TABLET PO PRN ×3 (05:04→20:12)
[2021-07-19] MEDS: HEPARIN for SUB-Q USE 5,000 UNIT/ML VIAL. SQ SCH ×3 (05:13→22:00)
[2021-07-19] MEDS: CYCLOBENZAPRINE 10 MG TABLET. PO SCH ×3 (06:27→20:11)
[2021-07-19 07:00] VITALS: BP 129/86
[2021-07-19] MEDS: BUDESONIDE 0.5 MG/2 ML NEBU. NEB SCH ×2 (07:49→20:34)
[2021-07-19] MEDS: IPRATRPIUM/ALBUTEROL 0.5/2.5MG 3 ML NEBU. NEB SCH ×4 (07:49→20:34)
[2021-07-19] MEDS: BENZONATATE 100 MG CAPSULE. PO SCH ×3 (08:19→20:11)
[2021-07-19] MEDS: LACTOBACILLUS RHAMNOSUS GG 1 CAPSULE. PO SCH ×2 (08:19→20:11)
[2021-07-19] MEDS: guaiFENesin DM 200MG/20MG 10 ML SYRUP PO PRN ×2 (08:19→20:11)
[2021-07-19] MEDS: AZITHROMYCIN 250 MG TABLET. PO SCH (08:19)
--- NOTE | 2021-07-19 08:30 | PDOC ---
[employer] PROGRESS NOTE Date of Service DOS: DATE: 07/19/21 TIME: 07:40 Chief Complaint Chief Complaint Acute hypoxemic respiratory failure - likely COPD exacerbation, will treat as such Abnormal CT chest - bilateral ground glass opacities and infiltrates. COVID 19 negative so far Pneumonia - likely bacterial pneumonia, gram-positive, gram-negative. Acute exacerbation of chronic obstructive pulmonary disease. Depression Migraine headache Chronic pain. Muscular dystrophy Diarrhea Tobacco dependence. Fever - monitor GURINDER - did not bring her CPAP History of Present Illness History of Present Illness Ms Longo is a 51-year-old female with PMHx muscular dystrophy, obesity, smoker with chronic bronchitis who comes to ED c/o worsening cough, congestion and shortness of breath. Sees the Neurom[facility] Clinic at [facility]. The patient has had deep cough and congestion for the last 3-1/2 weeks. She says that her and 2 adult children who live with her have been fine. She went to Urgent Care a couple of weeks ago and was treated with a 5-day course of doxycycline. She has not been able to tolerate Medrol Dosepak in the past. She is not sure about other steroids. She says that when she takes steroid, her legs become weaker. She has muscular dystrophy that was diagnosed about 3 years ago when her grandson was diagnosed at 5 years old. She and her family all follow with the Neu[facility] Clinic at [facility]. She is on disability from this. She has had some watery diarrhea over the last few days, but notes she has a large BM every 4 days then 3 days of watery stools, no foul smell, no history of c. diff. She denies any nausea, vomiting, or abdominal pain. 07/16: Still hypoxic still with cough shortness of breath. Some loose stools asking for Imodium. No foul smell in her stool. Having some nausea today. She is actively trying to quit smoking scatter prescription for Chantix at home 07/17: Feels her wheezing improved with the last breathing treatment. Blood pressure on the low side this morning. Became dyspneic when she took her self off O2 to walk to the bathroom saturations dropped to 84%. She is asking what the discharge plan is. Does not have her CPAP. 07/18: brought her CPAP last night. Desaturates with minimal exertion. She feels even worse today cough is more violent. Having nausea now with. We will increase frequency of steroids and add Pulmicort nebs repeat chest x-ray. 07/19: Wear CPAP last night but woke up at 330 to take a shower. She feels her shortness of breath and cough not really improve now has some subscapular left- sided muscle spasming and pain on cough. Ordered Lidoderm patch. She has been weak and ordered for PT and OT evaluation Vitals/I&O Vitals/I&O: Vital Signs Date Time Temp Pulse Resp B/P (MAP) Pulse Ox O2 Delivery O2 Flow Rate FiO2 07/19/21 05:34 98 Nasal Cannula 2.0 07/19/21 03:18 98.2 79 20 123/72 (89) 98.2 I & O 07/18/21 07/18/21 07/19/21 15:00 23:00 07:00 Intake Total 500 ml Balance 500 ml Physical Exam General: Alert, Oriented X3, Cooperative, moderate distress Heart: Regular rate Lungs: Wheezing Labs Labs: Laboratory Tests Test 07/18/21 11:52 Sodium Level 147 mmol/L (136-145) Potassium Level 4.6 mmol/L (3.5-5.1) Chloride Level 108 mmol/L (98-107) Carbon Dioxide Level 30 mmol/L (21-32) Anion Gap 9 (6-14) Blood Urea Nitrogen 17 mg/dL (7-20) Creatinine 0.8 mg/dL (0.6-1.0) Estimated GFR (Cockcroft-Gault) 75.6 Glucose Level 216 mg/dL (70-99) Calcium Level 9.1 mg/dL (8.5-10.1) Magnesium Level 2.1 mg/dL (1.8-2.4) Assessment and Plan Assessmemt and Plan Problems Medical Problems: (1) Bronchospasm Status: Acute (2) Community acquired pneumonia Status: Acute (3) Respiratory failure with hypoxia Status: Acute (4) Tobacco use Status: Acute Comment Review of Relevant I have reviewed the following items ade (where applicable) has been applied. Medications: Current Medications Medications (Trade) Dose Ordered Sig/Mirza Route PRN Reason Start Time Stop Time Status Last Admin Dose Admin Azithromycin (Zithromax) 250 mg DAILY PO 07/18/21 09:00 07/21/21 08:59 07/18/21 09:07 Budesonide (Pulmicort) 0.5 mg RTBID NEB 07/18/21 11:15 07/18/21 20:45 Methylprednisolone Sodium Succinate (SOLU-Medrol 40MG VIAL) 80 mg Q8HRS IV 07/18/21 15:00 07/19/21 05:02 Justifications for Admission Other Justification TATO HURST MD Jul 19, 2021 08:29
--- NOTE | 2021-07-19 08:46 | PDOC ---
PULMONARY PROGRESS NOTES DATE: 07/19/21 TIME: 08:46 Subjective Patient not sleeping well Complains of cough Complaints of back pain Continues to wheeze at times Vitals Vital Signs Date Time Temp Pulse Resp B/P (MAP) Pulse Ox O2 Delivery O2 Flow Rate FiO2 07/19/21 07:49 97 Nasal Cannula 3.0 07/19/21 03:18 98.2 79 20 123/72 (89) 98.2 ROS: No Nausea, No Chest Pain, No Increase Cough General: Alert, Oriented X4 Lungs: Wheezing Abdomen: Soft, Non-tender Neuro Exam: Alert Extremities: No Edema Skin: Warm, No Rashes Labs Laboratory Tests Test 07/18/21 11:52 Sodium Level 147 mmol/L (136-145) Potassium Level 4.6 mmol/L (3.5-5.1) Chloride Level 108 mmol/L (98-107) Carbon Dioxide Level 30 mmol/L (21-32) Anion Gap 9 (6-14) Blood Urea Nitrogen 17 mg/dL (7-20) Creatinine 0.8 mg/dL (0.6-1.0) Estimated GFR (Cockcroft-Gault) 75.6 Glucose Level 216 mg/dL (70-99) Calcium Level 9.1 mg/dL (8.5-10.1) Magnesium Level 2.1 mg/dL (1.8-2.4) Laboratory Tests Test 07/18/21 11:52 Sodium Level 147 mmol/L (136-145) Potassium Level 4.6 mmol/L (3.5-5.1) Chloride Level 108 mmol/L (98-107) Carbon Dioxide Level 30 mmol/L (21-32) Anion Gap 9 (6-14) Blood Urea Nitrogen 17 mg/dL (7-20) Creatinine 0.8 mg/dL (0.6-1.0) Estimated GFR (Cockcroft-Gault) 75.6 Glucose Level 216 mg/dL (70-99) Calcium Level 9.1 mg/dL (8.5-10.1) Magnesium Level 2.1 mg/dL (1.8-2.4) Medications Active Scripts Medications Dose Route/Sig Max Daily Dose Days Date Category Cyclobenzaprine Hcl 10 Mg Tablet 1 Tab PO TID 07/15/21 Reported Multivitamins (Multivitamin) 1 Each Tablet 1 Tab PO DAILY 08/06/17 Reported Valium (Diazepam) 10 Mg Tablet 10 Mg PO QID PRN 07/23/17 Reported Hydrocodone-Apap 7.5-325 (Hydrocodone Bit/Acetaminophen) 1 Each Tablet 1 Tab PO PRN Q6HRS PRN 07/23/17 Reported Tylenol (Acetaminophen) 325 Mg Tablet 325 Mg PO PRN Q4HRS PRN 10/08/13 Reported Ibuprofen 800 Mg Tablet 800 Mg PO PRN Q8HRS PRN 10/08/13 Reported Comments 07/15 Chest X-Ray IMPRESSION: 1. Elevation of the right hemidiaphragm with mild right basilar opacities, probably subsegmental atelectasis although a superimposed infection is not entirely excluded. 07/15 Chest CTA IMPRESSION: 1. No evidence of pulmonary thromboembolic disease. 2. Bilateral perihilar groundglass and nodular opacities, probably an infectious/inflammatory process. Impression . 1. Acute hypoxemic respiratory failure, multifactorial. 2. Abnormal CT chest revealing bilateral ground glass opacities and infiltrates. 3. Suspect bacterial pneumonia, gram-positive, gram-negative. 4. Acute exacerbation of chronic obstructive pulmonary disease. 5. Repeat SARS-CoV-2 PCR NEGATIVE 6. Multiple other comorbidities including depression, migraine headache, chronic pain. 7. Tobacco dependence. 8. Fever. Plan . Updated 07/19 Clinically improving May discharge in the a.m. Follow-up with me in 2 months with a repeat CT chest call office for appointment, [phone] I will see as needed IAIN SLATER MD Jul 19, 2021 08:46
[2021-07-19 11:00] VITALS: BP 96/60
[2021-07-19] MEDS: LIDOCAINE (700MG/PATCH) PATCH. TD SCH (11:48)
--- NOTE | 2021-07-19 13:18 | NUR ---
SS following up with discharge planning. SS reviewed pt chart and discussed with pt RN. Pt is currently requiring oxygen at 2-3 liters nasal canula. COVID19 negative. Pt on IV Rocephin and IV Solu-Medrol. Pt has CPAP at home. PT/OT ordered. Probable need for six minute walk if discharging to home. SS will continue to follow for discharge planning.
[2021-07-19 15:00] VITALS: BP 116/79
[2021-07-19 19:00] VITALS: BP 130/85
[2021-07-19] MEDS: PSYLLIUM HUSK (SUGAR FREE) 1 PKT PACKET PO SCH (21:00)
[2021-07-19] MEDS ORDERED: PATCH REMOVAL. MC SCH (21:00)
[2021-07-19 23:00] VITALS: BP 125/77
[2021-07-20] MEDS ORDERED: diphenhydrAMINE HCL 25 MG CAPSULE PO PRN (02:45)
[2021-07-20 03:00] VITALS: BP 125/89
[2021-07-20] MEDS: HEPARIN for SUB-Q USE 5,000 UNIT/ML VIAL. SQ SCH ×2 (06:16→14:14)
[2021-07-20] MEDS: methylPREDNISolone SOD SUCC PF 40 MG/ML VIAL. IV SCH ×2 (06:16→13:59)
[2021-07-20] MEDS: cefTRIAXone IV Push 1 GM VIAL. IVP SCH (06:17)
[2021-07-20 07:00] VITALS: BP 92/78
[2021-07-20] MEDS: IPRATRPIUM/ALBUTEROL 0.5/2.5MG 3 ML NEBU. NEB SCH ×2 (07:33→11:12)
[2021-07-20] MEDS: BUDESONIDE 0.5 MG/2 ML NEBU. NEB SCH (07:33)
[2021-07-20] MEDS: HYDROcodone/APAP 7.5/325MG 1 TAB TABLET PO PRN ×2 (08:49→16:30)
[2021-07-20] MEDS: LACTOBACILLUS RHAMNOSUS GG 1 CAPSULE. PO SCH (08:49)
[2021-07-20] MEDS: BENZONATATE 100 MG CAPSULE. PO SCH ×2 (08:49→13:58)
[2021-07-20] MEDS: AZITHROMYCIN 250 MG TABLET. PO SCH (08:49)
[2021-07-20] MEDS: LIDOCAINE (700MG/PATCH) PATCH. TD SCH (08:49)
[2021-07-20] MEDS: CYCLOBENZAPRINE 10 MG TABLET. PO SCH ×2 (08:49→13:58)
--- NOTE | 2021-07-20 10:21 | PDOC ---
PULMONARY PROGRESS NOTES DATE: 07/20/21 TIME: 10:21 Subjective Patient not sleeping well Complains of cough Complaints of back pain Continues to wheeze at times Vitals Vital Signs Date Time Temp Pulse Resp B/P (MAP) Pulse Ox O2 Delivery O2 Flow Rate FiO2 07/20/21 08:49 Room Air 2.0 07/20/21 07:34 100 07/20/21 07:00 97.5 90 23 92/78 (83) 97.5 ROS: No Nausea, No Chest Pain, No Increase Cough General: Alert, Oriented X4 Lungs: Wheezing Abdomen: Soft, Non-tender Neuro Exam: Alert Extremities: No Edema Skin: Warm, No Rashes Labs Laboratory Tests Test 07/18/21 11:52 Sodium Level 147 mmol/L (136-145) Potassium Level 4.6 mmol/L (3.5-5.1) Chloride Level 108 mmol/L (98-107) Carbon Dioxide Level 30 mmol/L (21-32) Anion Gap 9 (6-14) Blood Urea Nitrogen 17 mg/dL (7-20) Creatinine 0.8 mg/dL (0.6-1.0) Estimated GFR (Cockcroft-Gault) 75.6 Glucose Level 216 mg/dL (70-99) Calcium Level 9.1 mg/dL (8.5-10.1) Magnesium Level 2.1 mg/dL (1.8-2.4) Medications Active Scripts Medications Dose Route/Sig Max Daily Dose Days Date Category Cyclobenzaprine Hcl 10 Mg Tablet 1 Tab PO TID 07/15/21 Reported Multivitamins (Multivitamin) 1 Each Tablet 1 Tab PO DAILY 08/06/17 Reported Valium (Diazepam) 10 Mg Tablet 10 Mg PO QID PRN 07/23/17 Reported Hydrocodone-Apap 7.5-325 (Hydrocodone Bit/Acetaminophen) 1 Each Tablet 1 Tab PO PRN Q6HRS PRN 07/23/17 Reported Tylenol (Acetaminophen) 325 Mg Tablet 325 Mg PO PRN Q4HRS PRN 10/08/13 Reported Ibuprofen 800 Mg Tablet 800 Mg PO PRN Q8HRS PRN 10/08/13 Reported Comments 07/15 Chest X-Ray IMPRESSION: 1. Elevation of the right hemidiaphragm with mild right basilar opacities, probably subsegmental atelectasis although a superimposed infection is not entirely excluded. 07/15 Chest CTA IMPRESSION: 1. No evidence of pulmonary thromboembolic disease. 2. Bilateral perihilar groundglass and nodular opacities, probably an infectious/inflammatory process. Impression . 1. Acute hypoxemic respiratory failure, multifactorial. 2. Abnormal CT chest revealing bilateral ground glass opacities and infiltrates. 3. Suspect bacterial pneumonia, gram-positive, gram-negative. 4. Acute exacerbation of chronic obstructive pulmonary disease. 5. Repeat SARS-CoV-2 PCR NEGATIVE 6. Multiple other comorbidities including depression, migraine headache, chronic pain. 7. Tobacco dependence. 8. Fever. Plan . Updated 07/19 Clinically improving May discharge in the a.m. Follow-up with me in 2 months with a repeat CT chest call office for appointment, [phone] I will see as needed IAIN SLATER MD Jul 20, 2021 10:21
--- NOTE | 2021-07-20 10:57 | PDOC ---
[employer] PROGRESS NOTE Date of Service DOS: DATE: 07/20/21 TIME: 10:55 Chief Complaint Chief Complaint Acute hypoxemic respiratory failure - likely COPD exacerbation, will treat as such Abnormal CT chest - bilateral ground glass opacities and infiltrates. COVID 19 negative so far Pneumonia - likely bacterial pneumonia, gram-positive, gram-negative. Acute exacerbation of chronic obstructive pulmonary disease. Depression Migraine headache Chronic pain. Muscular dystrophy Diarrhea Tobacco dependence. Fever - monitor GURINDER - did not bring her CPAP History of Present Illness History of Present Illness Ms Longo is a 51-year-old female with PMHx muscular dystrophy, obesity, smoker with chronic bronchitis who comes to ED c/o worsening cough, congestion and shortness of breath. Sees the Neuromuscular Clinic at [facility]. The patient has had deep cough and congestion for the last 3-1/2 weeks. She says that her and 2 adult children who live with her have been fine. She went to Urgent Care a couple of weeks ago and was treated with a 5-day course of doxycycline. She has not been able to tolerate Medrol Dosepak in the past. She is not sure about other steroids. She says that when she takes steroid, her legs become weaker. She has muscular dystrophy that was diagnosed about 3 years ago when her grandson was diagnosed at 5 years old. She and her family all follow with the Neuromuscular Clinic at [facility]. She is on disability from this. She has had some watery diarrhea over the last few days, but notes she has a large BM every 4 days then 3 days of watery stools, no foul smell, no history of c. diff. She denies any nausea, vomiting, or abdominal pain. 07/16: Still hypoxic still with cough shortness of breath. Some loose stools asking for Imodium. No foul smell in her stool. Having some nausea today. She is actively trying to quit smoking scatter prescription for Chantix at home 07/17: Feels her wheezing improved with the last breathing treatment. Blood pressure on the low side this morning. Became dyspneic when she took her self off O2 to walk to the bathroom saturations dropped to 84%. She is asking what the discharge plan is. Does not have her CPAP. 07/18: brought her CPAP last night. Desaturates with minimal exertion. She feels even worse today cough is more violent. Having nausea now with. We will increase frequency of steroids and add Pulmicort nebs repeat chest x-ray. 07/19: Wear CPAP last night but woke up at 330 to take a shower. She feels her shortness of breath and cough not really improve now has some subscapular left- sided muscle spasming and pain on cough. Ordered Lidoderm patch. She has been weak and ordered for PT and OT evaluation 07/20: Still requiring 2 L/min nasal cannula oxygen requiring more on exertion. Worked with therapy and is standby assist. She notes she still having pleuritic chest pain with cough is still nonproductive. Wheezes have improved on examination. Likely discharge in the next 24 to 48 hours and will need 2 L/min O2 on exertion. Counseled extensively on smoking cessation she does have Chantix at home Vitals/I&O Vitals/I&O: Vital Signs Date Time Temp Pulse Resp B/P (MAP) Pulse Ox O2 Delivery O2 Flow Rate FiO2 07/20/21 08:49 Room Air 2.0 07/20/21 07:34 100 07/20/21 07:00 97.5 90 23 92/78 (83) 97.5 I & O 07/19/21 07/19/21 07/20/21 15:00 23:00 07:00 Intake Total 300 ml 540 ml Balance 300 ml 540 ml Physical Exam General: Alert, Oriented X3, Cooperative, moderate distress Heart: Regular rate Lungs: Wheezing Assessment and Plan Assessmemt and Plan Problems Medical Problems: (1) Bronchospasm Status: Acute (2) Community acquired pneumonia Status: Acute (3) Respiratory failure with hypoxia Status: Acute (4) Tobacco use Status: Acute Comment Review of Relevant I have reviewed the following items ade (where applicable) has been applied. Medications: Current Medications Medications (Trade) Dose Ordered Sig/Mirza Route PRN Reason Start Time Stop Time Status Last Admin Dose Admin Lidocaine (Lidoderm) 1 patch DAILY TD 07/19/21 11:45 07/20/21 08:49 Diphenhydramine HCl (Benadryl) 25 mg PRN Q6HRS PRN PO ITCHING 07/20/21 02:45 07/20/21 02:50 Justifications for Admission Other Justification TATO HURST MD Jul 20, 2021 10:57
[2021-07-20 11:00] VITALS: BP 112/69
[2021-07-20] MEDS: IBUPROFEN 400 MG TABLET. PO PRN (13:58)
[2021-07-20 15:00] VITALS: BP 120/72
[2021-07-20] MEDS ORDERED: PRED20TA PO (15:07)
[2021-07-20] MEDS ORDERED: HYDR-2765 PO (15:07)
[2021-07-20] MEDS ORDERED: AZIT250T6 PO (15:07)
--- NOTE | 2021-07-20 15:10 | SNU/HH DC ---
DISCHARGE WITH HOME HEALTH DISCHARGE INFORMATION: Discharge Date: Jul 20, 2021 Final Diagnosis: Problems Medical Problems: (1) Bronchospasm Status: Acute (2) Community acquired pneumonia Status: Acute (3) Respiratory failure with hypoxia Status: Acute (4) Tobacco use Status: Acute Condition on Discharge: Stable CODE STATUS: Code Status: Full HOME HEALTH: Face to Face: I certify this patient is under my care and that I, or a nurse practitioner or physician's educational assistant working with me, had a face to face encounter that meets the physician face to face encounter requirements with this patient on 07/20/2021. Medical Complications: COPD Fdc For: Medication Management, Pain Management RN For Eval/Treatment: Yes Physical Therapy For: Evalulation/Treatment Occupational Therapy For: Evaluation/Treatment Pt Meets Homebound Status: Fatigue w/ amb., Limited distance walking POST DISCHARGE ORDERS: Activity Instructions for Disc: Other, see below Weight Bearing Status after Di: No restrictions DIET AFTER DISCHARGE: Regular CHECKS AFTER DISCHARGE: Checks after discharge: Check blood press - daily, Check your Temp as needed TREATMENT/EQUIPMENT ORDERS: Adaptive Equipment Issued: None Discharge Respiratory Equipmen: Oxygen (3L/min on exertion), CPAP CERTIFICATION STATEMENT: Certification Statement: Certification Statement: Based on the above finding, I certify that this patient is confined to the home and needs intermittent penitentiary care, physical therapy and/or speech therapy, or continues to need occupational therapy.~ This patient is under my care, and I have initiated the establishment of the plan of care.~ This patient will be followed by myself or a community physician who will periodically review the plan of care. Home Meds Active Scripts Prednisone (PREDNISONE) 20 Mg Tablet, 1 TAB PO DAILY for Bronchitis for 5 Days, #5 TAB Prov:TATO HURST MD 07/20/21 Azithromycin (AZITHROMYCIN TABLET) 250 Mg Tablet, 250 MG PO DAILY for Bronchitis for 5 Days, #5 TAB Prov:TATO HURST MD 07/20/21 Hydrocodone Bit/Acetaminophen (HYDROCODONE-APAP 7.5-325 ) 1 Each Tablet, 1 TAB PO PRN Q6HRS PRN for PAIN for 6 Days, #20 TAB 0 Refills Prov:TATO HURST MD 07/20/21 Reported Medications Cyclobenzaprine Hcl (CYCLOBENZAPRINE HCL) 10 Mg Tablet, 1 TAB PO TID for muscle pain, #90 TAB 07/15/21 Multivitamin (MULTIVITAMINS) 1 Each Tablet, 1 TAB PO DAILY, #90 TAB 3 Refills 08/06/17 Acetaminophen (TYLENOL) 325 Mg Tablet, 325 MG PO PRN Q4HRS PRN for PAIN 10/08/13 Ibuprofen (IBUPROFEN) 800 Mg Tablet, 800 MG PO PRN Q8HRS PRN for PAIN 10/08/13 Discontinued Reported Medications Diazepam (VALIUM) 10 Mg Tablet, 10 MG PO QID PRN for PAIN, TAB 07/23/17 Citalopram Hydrobromide (CELEXA) 40 Mg Tablet, 1 TAB PO DAILY, #30 TAB 1 Refill 07/23/17 TATO HURST MD Jul 20, 2021 15:10
--- NOTE | 2021-07-20 15:35 | PDOC3 ---
Discharge Summary Visit Information Date of Admission: Jul 15, 2021 Date of Discharge: Jul 20, 2021 Admitting Diagnosis: Acute respiratory failure with hypoxia Final Diagnosis Problems Medical Problems: (1) Bronchospasm Status: Acute (2) Community acquired pneumonia Status: Acute (3) Respiratory failure with hypoxia Status: Acute (4) Tobacco use Status: Acute Brief Hospital Course Allergies Allergies Coded Allergies Type Severity Reaction Last Updated Verified povidone-iodine Allergy Severe RASH, HIVES, BURNING 10/11/13 Yes cephalexin Allergy Intermediate 08/06/17 Yes duloxetine Allergy Intermediate 08/06/17 Yes prednisone Allergy Intermediate 01/06/17 Yes Vital Signs Vital Signs Date Time Temp Pulse Resp B/P (MAP) Pulse Ox O2 Delivery O2 Flow Rate FiO2 07/20/21 11:12 95 Nasal Cannula 2.0 07/20/21 11:00 97.4 100 32 112/69 (83) 97.4 Brief Hospital Course Ms Longo is a 51-year-old female with PMHx muscular dystrophy, obesity, smoker with chronic bronchitis who comes to ED c/o worsening cough, congestion and shortness of breath. Sees the Neuromuscular Clinic at [facility]. The patient has had deep cough and congestion for the last 3-1/2 weeks. She says that her and 2 adult children who live with her have been fine. She went to Urgent Care a couple of weeks ago and was treated with a 5-day course of doxycycline. She has not been able to tolerate Medrol Dosepak in the past. She is not sure about other steroids. She says that when she takes steroid, her legs become weaker. She has muscular dystrophy that was diagnosed about 3 years ago when her grandson was diagnosed at 5 years old. She and her family all follow with the Neuromuscular Clinic at [facility]. She is on disability from this. She has had some watery diarrhea over the last few days, but notes she has a lar ge BM every 4 days then 3 days of watery stools, no foul smell, no history of c. diff. She denies any nausea, vomiting, or abdominal pain. 07/16: Still hypoxic still with cough shortness of breath. Some loose stools asking for Imodium. No foul smell in her stool. Having some nausea today. She is actively trying to quit smoking scatter prescription for Chantix at home 07/17: Feels her wheezing improved with the last breathing treatment. Blood pressure on the low side this morning. Became dyspneic when she took her self off O2 to walk to the bathroom saturations dropped to 84%. She is asking what the discharge plan is. Does not have her CPAP. 07/18: brought her CPAP last night. Desaturates with minimal exertion. She feels even worse today cough is more violent. Having nausea now with. We will increase frequency of steroids and add Pulmicort nebs repeat chest x-ray. 07/19: Wear CPAP last night but woke up at 330 to take a shower. She feels her shortness of breath and cough not really improve now has some subscapular left- sided muscle spasming and pain on cough. Ordered Lidoderm patch. She has been weak and ordered for PT and OT evaluation 07/20: Still requiring 2 L/min nasal cannula oxygen requiring more on exertion. Worked with therapy and is standby assist. She notes she still having pleuritic chest pain with cough is still nonproductive. Wheezes have improved on examination. Likely discharge in the next 24 to 48 hours and will need 2 L/min O2 on exertion. Counseled extensively on smoking cessation she does have Chantix at home Problem list: Acute hypoxemic respiratory failure - likely COPD exacerbation, will treat as such Abnormal CT chest - bilateral ground glass opacities and infiltrates. COVID 19 negative so far Pneumonia - likely bacterial pneumonia, gram-positive, gram-negative. Acute exacerbation of chronic obstructive pulmonary disease. Depression Migraine headache Chronic pain. Muscular dystrophy Diarrhea Tobacco dependence. Fever - monitor GURINDRE on home CPAP Greater than 30 minutes Discharge Information Condition at Discharge: Improved Follow Up: Weeks (1) Disposition/Orders: D/C to Home Scheduled Azithromycin (Azithromycin Tablet) 250 Mg Tablet, 250 MG PO DAILY for Bronchitis for 5 Days, #5 Prescribed by: TATO HURST MD on 07/20/21 1507 Cyclobenzaprine Hcl (Cyclobenzaprine Hcl) 10 Mg Tablet, 1 TAB PO TID for muscle pain, #90 (Reported) Entered as Reported by: TAISHA AVILA on 07/15/21 0909 Last Taken: 10mg tid prn on Unknown Date & Time Last Action: Continued on 07/15/21 1239 by MIKHAIL PACHECO Multivitamin (Multivitamins) 1 Each Tablet, 1 TAB PO DAILY, #90 Ref 3 (Reported) Entered as Reported by: ELIA BERNSTEIN on 08/06/17 0920 Last Action: HELD on 07/15/21 1239 by MIKHAIL PACHECO Prednisone (Prednisone) 20 Mg Tablet, 1 TAB PO DAILY for Bronchitis for 5 Days, #5 Prescribed by: TATO HURST MD on 07/20/21 1507 Scheduled PRN Acetaminophen (Tylenol) 325 Mg Tablet, 325 MG PO PRN Q4HRS PRN for PAIN, (Reported) Entered as Reported by: MARILU RIVERA on 10/08/13 1540 Last Action: Continued on 07/15/21 1239 by MIKHAIL PACHECO Hydrocodone Bit/Acetaminophen (Hydrocodone-Apap 7.5-325 ) 1 Each Tablet, 1 TAB PO PRN Q6HRS PRN for PAIN for 6 Days, #20 Ref 0 Prescribed by: TATO HURST MD on 07/20/21 1508 Ibuprofen (Ibuprofen) 800 Mg Tablet, 800 MG PO PRN Q8HRS PRN for PAIN, (Repor amy) Entered as Reported by: MARILU RIVERA on 10/08/13 1535 Last Action: Converted on 07/15/21 1239 by MIKHAIL PACHECO Discontinued Medications Citalopram Hydrobromide (Celexa) 40 Mg Tablet, 1 TAB PO DAILY, #30 Ref 1 (Reported) Entered as Reported by: LISANDRA MAYORGA on 07/23/17 1618 Last Action: Discontinued on 07/15/21 0909 by TAISHA AVILA Diazepam (Valium) 10 Mg Tablet, 10 MG PO QID PRN for PAIN, (Reported) Entered as Reported by: LISANDRA MAYORGA on 07/23/17 1001 Last Action: HELD on 07/15/21 1239 by MIKHAIL PACHECO Justicifation of Admission Dx: Justifications for Admission: Justification of Admission Dx: Yes Respiratory Failure: Severe Resp Distress TATO HURST MD Jul 20, 2021 15:35
--- NOTE | 2021-07-20 18:25 | NUR ---
Discharge Note: ZANDER AGUILAR Discharge instructions and discharge home medications reviewed with Patient and a copy given. All questions have been answered and understanding verbalized. The following instructions and handouts were given: discharge instructions, new prescriptions, education and follow up recommendations. Discontinued lines and drains: Peripheral IV discontinued intact. Patient discharged to Home or Self Care with Family Member via Wheelchair off unit by NUT GRINDER.
== END 2021-07-20 18:25 | disposition home or self-care (01) | DRG 177 ==
LOC: ER 07-15 01:31 → 5 NORTH 07-15 04:40 → OBSVTOIN 07-16 13:10
PROVIDERS: ADMIT Student in an Organized Health Care Education/Training Program; ATTEND Student in an Organized Health Care Education/Training Program
PROC: 5A09357 Assistance with Respiratory Ventilation, Less than 24 Consecutive Hours, Continuous Positive Airway Pressure (ICD-10-PCS; principal; 2021-07-18)
DX: J15.6 Pneumonia due to other Gram-negative bacteria (principal); J96.01 Acute respiratory failure with hypoxia; J44.0 Chronic obstructive pulmonary disease with (acute) lower respiratory infection; J44.1 Chronic obstructive pulmonary disease with (acute) exacerbation; F17.210 Nicotine dependence, cigarettes, uncomplicated; F32.A Depression, unspecified; G43.909 Migraine, unspecified, not intractable, without status migrainosus; G47.33 Obstructive sleep apnea (adult) (pediatric); G71.00 Muscular dystrophy, unspecified; G89.29 Other chronic pain; J15.9 Unspecified bacterial pneumonia; Z20.822 Contact with and (suspected) exposure to COVID-19; Z80.3 Family history of malignant neoplasm of breast; Z90.49 Acquired absence of other specified parts of digestive tract; E66.9 Obesity, unspecified; G51.0 Bell's palsy; Z68.38 Body mass index [BMI] 38.0-38.9, adult; Z88.8 Allergy status to other drugs, medicaments and biological substances
CPT/HCPCS: 36415; 71045; 71275; 80048; 80053; 83605; 83735; 83880; 84484; 85025; 87040; 87426; 87428; 87449; 87899; 90471; 90686; 93005; 94618; 94640; 94760; 96361; 96374; G0238; G0378; G0379; J0456; J0696; J1644; J2405; J2920; J7030; J7050; P9041; Q9967; U0003; 97530-GP; 97535-GO; 99285-25; J7613; J7626; Q0163